=== PATIENT | male | born 1960 | race Caucasian/White ===

== ENCOUNTER 2025-01-17 09:26 | Outpatient (REF) | payer MEDICARE, MEDICAID, SELFPAY ==
--- NOTE | ~2025-01-17 | XR_ITS ---
CLINICAL HISTORY: M54.9 - Dorsalgia, unspecified 5 views lumbar spine Comparison: None Findings: Trace retrolisthesis of L5 on S1. Remaining alignment is normal. No acute fractures or dislocation. There are changes of DISH. There is mild loss of intervertebral disc height at L5-S1. There is mild facet osteoarthritis at L4-L5 and L5-S1. IMPRESSION: No acute findings. This document has been electronically signed by: Lulú Morgan MD on 01/17/2025 14:14:11
--- OUTSIDE RECORDS SUMMARY | 2025-01-17 11:40 | XMS_ITS | Encounter Summary ---
Author Organization [employer] Address 75 [facility] 7t [place] [address] Care Team Providers Care Engagement Executive Name Role Phone Hilda Lb MONTGOMERY Primary Care Provider + [phone] Encounter Details Date Type Department Care Team (Late st Contact Info) Description 11/15/2024 Orders Only [facility] MEDICAL [address] [place] [address] ProviderAna MD Social History Tobacco Use Types [...] 04/30/2025 9:00 AM EDT Office Visit [facility] MEDICAL [address] [place] [address] Lb Stevens NP [address] [place] [address] documented as of this encounter Procedures Procedure Name Priority Date/Time Associated Diagnosis Comments HM COLONOSCOPY Routine 11/14/2024 10:38 AM EST documented in this encounter Results * Hm Colonoscopy (11/14/2024 10:38 AM EST) us Historical Provider HEALTH MAINTENANCE Final Result documented in this encounter Visit Diagnoses Not on filedocumented in this encounter Care Teams Engagement Executive Relationship Specialty Start Date End Date Lb Stveens NP [address] [place] [address] PCP - General Internal Medicine 10/28/22 documented as of this encounter
--- OUTSIDE RECORDS SUMMARY | 2025-01-17 11:40 | XMS_ITS | Encounter Summary ---
Author Organization [employer] Address 75 [facility] 7t [place] [address] Care Team Providers Care Tire Buster Name Role Phone Lb Stevens NP Primary Care Provider + [phone] Reason for Visit * Reason Onset Date Comments Med Refill 12/24/2024 Encounter Details Date Type Department Care Team (Late st Contact Info) Description 12/24/[address] [facility] MEDICAL [address] [place] [address] Lb Stevens NP [address] [place], [place] [phone] Primary osteoarthritis involving multiple joints (Primary Dx) [...] Description 04/30/2025 9:00 AM EDT Office Visit [place] [facility] [address] [place] [address] Lb Stevens NP [address] [place] [address] documented as of this encounter Visit Diagnoses Diagnosis Primary osteoarthritis involving multiple joints- Primary documented in this encounter Care Teams Tire Buster Relationship Specialty Start Date End Date Lb Stevens NP [address] [place] [address] PCP - General Internal Medicine 10/28/22 documented as of this encounter
--- OUTSIDE RECORDS SUMMARY | 2025-01-17 11:40 | XMS_ITS | Encounter Summary ---
Author Organization [employer] Address [address] [place] [address] Care Team Providers Care Quality Assurance Qa Lab Technician Name Role Phone Lb Stevens NP Primary Care Provider [phone] Encounter Details Date Type Department Care Team (Late st Contact Info) Description 01/01/2025 9:00 AM EST Office Visit Armen [facility] [address] [place] [address] Lb Stevens NP [address] [place] [address] Type 2 diabetes mellitus without complication, without long-term current use of insulin ([facility]) (Primary Dx); Essential hypertension; Hyperlipidemia, [...] 9:00 AM EST 01/01/25 Thaddeus Pacheco [id number] HPI: Thaddeus Pacheco is a 64 y.o. male Hx of numbness in left arm, LEFT thumb and 2nd/3rd finger; mild numbness in right arm. Xray of c-spine with deg changes; MRI with moderate deg changes Taking oxycodone for pain, Bupronorphine patch not approved by insurance Also rxed meloxicam, apap, and cyclobenzaprine. Saw Dr Mccarty at [facility] in past. Referred to [facility] but not yet seen Chronic [...] did not get it from pharmacy. RHM [id number] with adenomatous polyps, plan to repeat 2028 Due for Prevnar, flu, covid, declines. Patient Active Problem List Diagnosis Date Noted Chronic gout of multiple sites 10/14/2022 Essential hypertension 10/14/2022 Hyperlipidemia 10/14/2022 Type 2 diabetes mellitus without complication, without long-term current use of insulin ([facility]) 10/14/2022 Peripheral polyneuropathy 10/14/2022 Esophageal polyp 10/14/2022 [...] complication, without long-term current use of insulin ([facility]) (Primary) Improving. No change tx. Diet reviewed Labs as below - POCT glycosylated hemoglobin (Hgb A1c) - Albumin/Creatinine Ration, Timed Urine; Future - Albumin/Creatinine Ration, Timed Urine 2. Essential hypertension Controlled, check labs - Basic Metabolic Panel 635226; Future - Basic Metabolic Panel 448988 3. Hyperlipidemia, unspecified hyperlipidemia type On statin, check labs - Lipid Panel, Standard 61465; Future - Lipid Panel, Standard 52319 4. Elevated PSA Prostate with enlargement. Continue meds. Check PSA. Consider addition of finasteride next visit, but will send to urology if PSA remains elevated. - PSA,Total [[id number]]; Future - PSA,Total [[id number]] 5. Nocturia As above 6. Cervicalgia Will f/u with [facility] 7. Primary osteoarthritis involving multiple joints Continue on oxycodone, refill cyclobenzaprine prn. - cyclobenzaprine (Flexeril) 10 MG tablet; Take 1 tablet (10 mg) by mouth if needed at bedtime for muscle spasms. Dispense: 90 tablet; Refill: 0 8. Vitamin D deficiency Check labs - Vitamin D 1,25 dihydroxy 119590; Future - Vitamin D 1,25 dihydroxy 230505 9. Idiopathic chronic gout of multiple sites [...] pain). Lb Stevens, MSN, MSP, ANP [facility] [address], [place] [address] documented in this encounter Plan of Treatment Upcoming Encounters Date Type Department Care Team (Late st Contact Info) Description 04/30/2025 9:00 AM EDT Office Visit Armen [facility] [address] [place] [address] Lb Stevens NP [address] [facility] [place] [address] Scheduled Orders Name Type Priority Associated Diagnoses Orde r Schedule PSA,Total [[id number]] Lab Routine Elevated PSA Expected: 01/01/2025, Expires: 01/01/2026 Lipid Panel, Standard 12654 Lab Routine Hyperlipidemia, unspecified hyperlipidemia type Expected: 01/01/2025, Expires: 01/01/2026 Vitamin D 1,25 dihydroxy 952930 Lab Routine Vitamin D deficiency Expected: 01/01/2025, Expires: 01/01/2026 Uric acid Lab Routine Idiopathic chronic gout 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 Expected: 01/01/2025, Expires: 01/01/2026 Basic Metabolic Panel 511152 Lab Routine Essential hypertension Expected: 01/01/2025, Expires: 01/01/2026 Albumin/Creatinine Ration, Timed Urine Lab Routine Type 2 diabetes mellitus without complication, without long-term current use of insulin ([facility]) Expected: 01/01/2025 (Approximate), Expires: 01/01/2026 documented as of this encounter Procedures Procedure Name Priority Date/Time Associated Diagnosis Comments POCT GLYCOSYLATED HEMOGLOBIN (HGB A1C) Routine 01/01/2025 9:13 AM EST Type 2 diabetes mellitus without complication, without long-term current use of insulin ([facility]) documented in this encounter Results * (ABNORMAL) [...] complication, without long-term current use of insulin ([facility])- Primary Essential hypertension Unspecified essential hypertension Hyperlipidemia, unspecified hyperlipidemia type Elevated PSA Elevated prostate specific antigen (PSA) Nocturia Cervicalgia Primary osteoarthritis involving multiple joints Vitamin D deficiency Idiopathic chronic gout 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 Adenomatous polyp of colon, unspecified part of colon Healthcare maintenance documented in this encounter Care Teams Quality Assurance Qa Lab Technician Relationship Specialty Start Date End Date Lb Stevens NP [address] [place] [address] PCP - General Internal Medicine 10/28/22 documented as of this encounter
--- OUTSIDE RECORDS SUMMARY | 2025-01-17 11:40 | XMS_ITS | Encounter Summary ---
Author Organization [employer] Address [address] [facility] [address] [place] [address] Care Team Providers Care Soil Scientist Name Role Phone Lb Stevens NP Primary Care Provider [phone] Reason for Visit * Reason Onset Date Comments Med Refill 01/17/2025 Encounter Details Date Type Department Care Team (Late st Contact Info) Description 01/17/2025 Refill [facility] [address] [place] [address] Lb Stevens NP [address] [place], [place] [id number] Primary osteoarthritis involving multiple joints Social History [...] 04/30/2025 9:00 AM EDT Office Visit Armen [facility] [address] [place] [address] Lb Stevens NP [address] [place] [address] documented as of this encounter Visit Diagnoses Diagnosis Primary osteoarthritis involving multiple joints documented in this encounter Care Teams Soil Scientist Relationship Specialty Start Date End Date Lb Stevens NP [address] [place] [address] PCP - General Internal Medicine 10/28/22 documented as of this encounter
--- OUTSIDE RECORDS SUMMARY | 2025-01-17 11:40 | XMS_ITS | Clinical Summary ---
Author Organization [employer] Address [address] [facility] [address] [place] [address] Care Team Providers Care Knife Sharpener Name Role Phone Lb Stevens NP Primary [...] complication, without long-term current use of insulin ([facility]) 1 each by Other route if needed [...] tabletIndications :Type 2 diabetes mellitus without complications ([facility]) TAKE 1 TABLET BY MOUTH TWICE A [...] Type Department Care Team Description 01/17/2025 Refill [facility] [address] [place] [address] Lb Stevens NP Primary osteoarthritis involving multiple joints 01/01/2025 9:00 AM EST Office Visit [address] [address] Lb Stevens NP Type 2 diabetes mellitus without complication, without long-term current use of insulin ([facility]) (Primary Dx); Essential hypertension; Hyperlipidemia, unspecified hyperlipidemia type; Elevated PSA; Nocturia; Cervicalgia; Primary osteoarthritis involving multiple joints; Vitamin D deficiency; Idiopathic chronic gout 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; Adenomatous polyp of colon, unspecified part of colon; Healthcare maintenance 12/24/2024 Refill [facility] [address] [place] [address] Lb Stevens NP Primary osteoarthritis involving multiple joints (Primary Dx) 12/05/[address] [address] Lb Stevens NP Abnl cervical MRI, referral to pain mgmt 12/02/[address] [address] Lb Stevens NP Seborrheic dermatitis 11/29/[address] [address] Lb Stevens NP Nocturia 11/28/[address] [address] Lb Stevens NP Vitamin D deficiency 11/15/[address] [facility] [address] [place] [address] ProviderAna MD 10/24/[address] [facility] [address] [place] [address] Lb Stevens NP Primary osteoarthritis involving multiple joints; Chronic pain of left knee 10/19/2024 Refill [facility] [address] [place] [address] Lb Stevens NP Type 2 diabetes mellitus without complications ([facility]) from Last 3 Months Immunizations Name Administration [...] Cataracts Sister Relation Name Status Comments Father [place] Mother gangrene Sister Social History Tobacco Use [...] 04/30/2025 9:00 AM EDT Office Visit Armen [facility] [address] [place] [address] Lb Stevens NP [address] [place] [address] Health Maintenance Due Date Last Done Comments [...] complication, without long-term current use of insulin ([facility]) MR CERVICAL SPINE WO CONTRAST Routine 11/24/2024 [...] Venous blood specimen / Unknown Lb Stevens PHARMACY SALESPERSON LAB BLOOD ORDERABLES Final R esult EXTERNAL LAB * Microalbumin, Random Urine w/Creatinine (06/24/2023 7:07 AM EDT) Micro-Albumin 14.0 (<20) MG/L [facility] Comment: The urine microalbumin test is designed to monitor renal function. When screening for Bence Bowens proteinuria, urine electrophoresis is recommended. Malb/Creat Ratio 15.6 (0-20) MG/GM [facility] Urine Creat For Micro Albumin 89.0 MG/DL [facility] Comment: Testing performed or reported by [facility], a Service of [facility], [address] [place] [address] Cruz French MD, [employer] [facility]# [id number] 06/24/2023 7:07 AM EDT 06/24/2023 7:08 AM EDT Lb Stevens PHARMACY SALESPERSON LAB URINE ORDERABLES Final R esult Performing Organization Address [facility] Co de Phone Number [facility] [place] [address] from Last 3 Months or Most Recently Relevant to Health Maintenance Insurance [employer] MCR ADV HMO [facility] Care Teams Knife Sharpener Relationship Specialty Start Date End Date Lb Stevens NP [address] [place] [address] PCP - General Internal Medicine 10/28/22
--- OUTSIDE RECORDS SUMMARY | 2025-01-17 11:41 | XMS_ITS | Data Portability ---
Author Organization [facility], Endoscopy, [facility] Address [address] [place] [address] Assessment No assessment recorded. Plan of Treatment Reminders Order Date Submit Date Provider Last Modified By Organization Details Last Modified Time Details Appointments None record ed. Lab None record ed. Referral None record ed. Procedures None record ed. Surgeries None record ed. Imaging None record ed. Medication Orders None record ed. Patient TargetsNo targets recorded. Patient InstructionsNo instructions recorded. Reason for Referral None Reported. Results Created Date Observation Date Name Description Value Unit Range Abnormal Flag Note LastModifiedBy Organization Detail LastModifiedTime Result Notes None recorded. Procedures Surgical History Date Name Laterality Status Provider Name and Address Organization Details Recorded Time 4 Michael - Colonoscopy completed Vasquez Rodriguez MD [address] [place] [address], [id number] 11/14/2024 09:52:51 Imaging Results None recorded. Procedure Notes None recorded. Medical Equipment None Reported. Allergies Allergen ID Allergen Name Allergen Category Reaction Reaction Severity Criticality Documentation Date Start Date Code Code System Note Provider Name and Address Organization Details Recorded Time 642537 Product containin g penicilli n (product) medicatio n swelling Not available Not available 11/12/2024 03112 8001 SNOMED ASIA Costa, [facility] 4 15:11:31 100294 prednison e medicatio n chest pain Not available Not available 11/12/2024 8640 RxNorm ASIA Reveles, [facility] 4 16:25:44 950754 honey bee venom medicatio n anaphylax is Not available Not available 11/12/2024 38232 7 RxNorm ASIA Reveles, [facility] 4 16:26:37 743377 penicilla mine medicatio n swelling Not available Not available 11/13/2024 7975 RxNorm Lulú Moeller RN [facility] 15:11:36 Medications Name Sig Start Date Stop Date Status Note LastModified by Organization Details LastModified Time atorvastatin active Not Available Not Available Not Available meloxicam active Not Available Not Aminata ilable Not Available tamsulosin active Not Available Not Av ailable Not Available omeprazole active Not Available Not Av ailable Not Available amlodipine active Not Available Not Av ailable Not Available cyclobenzaprine active PRN Not Available N ot Available Not Available allopurinol active Not Available Not A vailable Not Available Vitamin D3 active Not Available Not Av ailable Not Available metformin active Not Available Not Aminata ilable Not Available Vitals None Recorded Social History None recorded. Functional Status None recorded. Mental Status None recorded. Family History Nothing Reported. Medical History No medical history recorded. Past Encounters Encounter ID Performer Location Encounter Start Date Encounter Closed Date Diagnosis/Indication Diagnosis SNOMED-CT Code Diagnosis ICD10 Code Diagnosis Note [id number] [facility], OFFICE [address] [place] [address] 03/31/2004 10:18:30 03/31/2004 14:37:57 [id number] LAB - [address] [address] 03/31/2004 11:19:45 03/31/2004 11:20:36 [id number] [facility], OFFICE [address] [place] [address] 6 04/30/2004 12:10:45 05/01/2004 08:39:52 [id number] [facility], OFFICE [address] [place] [address] 6 05/12/2004 09:58:16 05/12/2004 11:59:15 [id number] [facility], [address] [address] 05/26/2004 09:43:20 05/26/2004 12:18:46 [id number] [facility], OFFICE [address] [place] [address] 6 06/02/2004 11:10:06 06/02/2004 14:32:25 [id number] [facility], OFFICE [address] [place] [address] 6 12/17/2004 14:11:44 12/17/2004 16:58:39 [id number] Radiology , [facility] [address] [place] [address] 6 12/17/2004 14:45:09 12/18/2004 09:03:30 [id number] Radiology , [facility] [address] [place] [address] 6 12/17/2004 00:00:00 12/18/2008 02:02:29 [id number] FP, [facility], [address]ICE [address] [place] [address] 12/23/2004 16:09:24 12/24/2004 08:38:56 [id number] FP, [facility], [address] [place] [address] 01/08/2005 14:52:21 01/08/2005 15:55:33 [id number] Radiology , [facility] [address] [place] [address] 6 03/15/2005 14:45:40 03/16/2005 09:17:27 [id number] Radiology , [facility] [address] [place] [address] 6 03/15/2005 00:00:00 12/18/2008 02:02:29 [id number] FP, [facility], OFF[address] [place] [address] 6 03/15/2005 14:26:25 03/15/2005 16:19:02 [id number] FP, [facility], [address] [place] [address] 6 03/25/2005 11:02:59 03/25/2005 15:08:17 [id number] Radiology , [facility] [address] [place] [address] 6 03/25/2005 11:21:44 03/26/2005 08:38:01 [id number] Radiology , [facility] [address] [place] [address] 6 03/25/2005 00:00:00 12/18/2008 02:02:29 [id number] FP, [facility], OFF[address] [place] [address] 6 06/01/2005 16:11:52 06/02/2005 08:44:19 [id number] FP, [facility], [address] [place] [address] 6 04/28/2006 09:32:50 04/28/2006 11:20:56 [id number] Radiology , [facility] [place] [address] 6 04/28/2006 10:45:25 04/29/2006 09:36:23 [id number] LAB - [facility] GREGORY Craven62[address] 6 04/29/2006 07:55:27 04/29/2006 07:55:45 [id number] Physical Therapy, [facility] GREGORY Craven62-[address] 6 05/09/2006 11:27:47 12/18/2008 02:02:29 [id number] Physical Therapy, [facility] Debra [facility] GREGORY Mccollum62-[address] 6 05/12/2006 13:30:35 12/18/2008 02:02:29 [id number] Physical [facility], [facility] Debra [facility] GREGORY Mccollum62-146 6 05/17/2006 08:18:10 12/18/2008 02:02:29 [id number] Physical Therapy, [facility] Debra [facility] GREGORY Mccollum62-[address] 6 05/19/2006 09:42:08 05/20/2006 09:04:42 [id number] Physical [facility], [address] G[place] Boothe62[address] 6 05/23/2006 10:58:43 12/18/2008 02:02:29 [id number] Physical [facility], [address] GREGORY Boothe62[address] 6 05/25/2006 07:27:58 12/18/2008 02:02:29 [id number] , [facility], [place] [address] [address] [place] [address] 6 05/26/2006 10:51:49 12/18/2008 02:02:29 [id number] Physical [facility], [address] [place] [address] 6 05/27/2006 11:01:08 12/18/2008 02:02:29 [id number] Physical [facility], [address] [place] [address] 6 06/03/2006 11:50:12 12/18/2008 02:02:29 [id number] Radiology , [facility] Debra [facility] [place] [address] 6 04/28/2006 00:00:00 12/18/2008 02:02:29 [id number] Physical [facility], [facility] Debra [facility] [place] [address] 6 06/07/2006 12:58:31 12/18/2008 02:02:29 [id number] Physical Therapy, [facility] [place] [address] 6 06/13/2006 12:00:36 12/18/2008 02:02:29 [id number] Physical Therapy, [facility] [place] [facility] [place] [address] 6 06/17/2006 12:56:28 12/18/2008 02:02:29 [id number] , [facility], OFFICE [address] [facility] [address] 6 07/28/2006 09:21:20 07/28/2006 11:11:41 [id number] Optical, [facility] Debra [facility] [place] [address] 6 10/11/2006 10:22:16 10/11/2006 16:53:56 [id number] Eye Care, [facility] [place] [facility] [place] [address] 10/11/2006 08:59:55 12/18/2008 02:02:29 [id number] [facility], OFFICE [address] [place] [address] 01/06/2007 09:16:54 01/06/2007 13:24:46 [id number] [facility], OFFICE [address] [place] [address] 6 01/09/2007 09:32:35 01/09/2007 13:14:56 [id number] [facility] - [facility] 70 [place] [address] 6 04/19/2007 08:10:17 04/19/2007 08:10:21 [id number] [facility], OFFICE [address] [place] [address] 6 05/26/2007 08:27:30 05/26/2007 10:20:43 [id number] [facility], OFFICE [address] [place] [address] 6 05/29/2007 11:40:45 05/29/2007 15:23:55 [id number] [facility], OFFICE [address] [place] [address] 6 06/01/2007 15:12:26 06/02/2007 08:38:31 [id number] [facility], OFFICE [address] [place] [address] 08/01/2007 10:19:48 08/07/2007 09:46:02 [id number] [facility], OFFICE [address] [facility] [place] [address] 6 01/25/2008 15:58:37 12/18/2008 02:02:29 [id number] [facility], OFFICE [address] [facility] [place] [address] 6 01/29/2008 09:51:09 12/18/2008 02:02:29 [id number] LAB - [facility] 70 [facility] GREGORY Mccollum62-[address] 6 01/30/2008 08:33:13 01/30/2008 08:33:17 [id number] [facility], OFFICE [address] [facility] [place] [address] 6 02/06/2008 09:55:47 12/18/2008 02:02:29 [id number] Radiology , [facility] 70 [facility] [place] [address] 6 02/14/2008 10:18:11 02/15/2008 09:21:32 [id number] [facility], OFFICE [address] [facility] [place] [address] 6 02/14/2008 09:39:56 12/18/2008 02:02:29 [id number] Physical Therapy, [facility] 70 [facility] [place] [address] 6 02/19/2008 11:15:58 02/19/2008 17:04:46 [id number] [facility] - [address] [place] [address] 6 04/30/2008 07:47:56 04/30/2008 07:48:05 [id number] [facility], OFFICE [address] [facility] [place] [address] 6 06/17/2008 11:20:30 12/18/2008 02:02:29 [id number] [facility] - [facility] 70 [facility] [place] [address] 6 09/04/2008 07:10:21 09/04/2008 07:10:28 [id number] [facility], OFFICE [address] [facility] [place] [address] 6 09/20/2008 09:24:38 12/18/2008 02:02:29 [id number] Optical, [facility] 70 [facility] [place] [address] 6 10/14/2008 09:58:54 10/14/2008 16:40:17 [id number] Eye Care, [facility] 70 [facility] [place] [address] 6 10/14/2008 08:56:42 10/14/2008 12:00:56 [id number] Eye [facility], [facility] [address] [place] [address] 6 10/14/2008 00:00:00 12/18/2008 02:02:29 [id number] , [facility], OFFICE [address] [place] [address] 02/14/2009 09:13:26 02/20/2009 12:37:40 [id number] , [facility], OFFICE [address] [place] [address] 6 02/17/2009 11:26:42 02/19/2009 11:10:33 [id number] , [facility], OFFICE [address] [place] [address] 6 02/21/2009 11:46:59 02/24/2009 15:25:29 [id number] , [facility], OFF[address] [place] [address] 6 02/25/2009 09:49:33 02/27/2009 11:03:33 [id number] [facility], OFFICE [address] [place] [address] 6 02/28/2009 10:25:08 03/05/2009 09:33:07 [id number] , [facility], OFFICE [address] [facility] [place] [address] 6 06/26/2009 10:17:00 07/02/2009 14:43:45 [id number] , [facility], OFFICE [address] [facility] [place] [address] 6 06/27/2009 09:34:03 07/03/2009 13:25:41 [id number] [facility], OFFICE [address] [place] [address] 6 07/14/2009 10:20:34 07/16/2009 15:01:27 [id number] Tara small [place] , [facility], OFFICE [address] [place] [address] 6 07/29/2009 16:40:39 08/01/2009 11:47:00 [id number] LAB - [facility] [address] [place] [address] 6 01/15/2009 08:51:18 01/15/2009 08:51:22 [id number] LAB - [facility] [address] [place] [address] 6 02/28/2009 11:16:45 02/28/2009 11:16:53 [id number] LAB - C [address] [facility] [place] [facility] [address] 6 06/26/2009 14:01:41 06/26/2009 14:01:47 [id number] [facility], OFFICE [address] [facility] [place] [address] 6 07/29/2009 00:00:00 09/25/2009 02:00:52 [id number] LAB - [facility] 70 [facility] [place] [address] 6 08/05/2009 07:42:17 08/05/2009 07:42:31 [id number] [facility], OFFICE [address] [facility] [place] [address] 6 09/27/2009 09:27:38 09/30/2009 15:31:58 [id number] [facility], OFFICE [address] [facility] [address] 6 10/03/2009 08:14:08 10/06/2009 14:02:12 [id number] Radiology , [facility] 70 [facility] [place] [address] 6 10/03/2009 08:37:09 10/06/2009 14:30:16 [id number] MD SASHA Denny [facility], OFFICE [address] [facility] [place] [address] 6 01/23/2010 08:51:23 01/26/2010 11:56:16 [id number] [facility], OFFICE [address] [facility] [place] [address] 6 04/06/2010 09:00:40 04/08/2010 09:13:59 [id number] SASHA [facility], OFFICE [address] [facility] [place] [address] 6 08/13/2010 11:01:52 08/13/2010 14:44:20 [id number] [facility], OFFICE [address] [facility] [address] 6 09/07/2010 08:18:05 09/09/2010 09:17:40 [id number] [facility], OFFICE [address] [facility] [place] [address] 6 10/09/2010 10:28:02 10/09/2010 14:41:59 [id number] SASHA [facility], OFFICE [address] [facility] [place] [address] 6 12/01/2010 09:00:42 12/01/2010 13:35:24 [id number] FP, [facility], OFFICE [address] [facility] [place] [place] [address] 6 01/21/2011 11:23:21 01/21/2011 14:13:57 [id number] FP, [facility], OFF[address] [place] [address] 6 03/19/2011 10:09:10 03/23/2011 14:20:09 [id number] FP, [facility], OFF[address] [place] [address] 6 06/18/2011 09:43:09 06/18/2011 12:13:22 [id number] Nutrition -[facility] [address] [place] [address] 6 07/20/2011 09:16:40 07/20/2011 10:14:35 [id number] FP, [facility], OFF[address] [place] [address] 6 09/15/2011 09:50:18 09/15/2011 10:26:20 [id number] FP, [facility], OFF[address] [place] [address] 6 10/13/2011 09:25:01 10/15/2011 07:39:30 [id number] FP, [facility], OFF[address] [place] [address] 6 01/12/2012 09:33:03 01/17/2012 10:44:04 [id number] FP, [facility], OFF[address] [place] [address] 6 04/26/2012 10:27:44 04/26/2012 10:56:16 [id number] Tara small [place] FP, [facility], [address] [place] [address] 6 07/19/2012 11:04:42 07/19/2012 11:49:32 [id number] MD SASHA Denny, [facility], OFF[address] [place] [address] 6 12/22/2012 09:28:01 12/22/2012 10:05:38 [id number] Rubi BAEZ, [facility], OFF[address] [place] [address] 6 01/19/2013 10:08:53 01/19/2013 12:40:24 [id number] MD SASHA Mcnamara, [facility], OFF[address] [place] [address] 6 02/27/2013 14:49:49 02/27/2013 15:28:21 [id number] Lissa Alpesh BAEZ, [facility], OFF[address] [place] [address] 6 03/13/2013 09:20:17 03/13/2013 12:58:07 [id number] Lissa Alpesh BAEZ, [facility], OFF[address] [place] [address] 6 03/23/2013 10:54:42 03/26/2013 13:07:09 [id number] Lissa BAEZ, [facility], OFF[address] [place] [address] 6 04/02/2013 11:11:12 04/02/2013 13:54:07 [id number] Madison Padilla, PT Physical Therapy, [address] [place] [facility] [place] [address] 6 04/04/2013 08:41:36 04/05/2013 07:58:38 [id number] Madison Padilla PT Physical Therapy, [address] [place] [facility] [place] [address] 6 04/09/2013 10:58:16 04/10/2013 09:14:59 [id number] Madison Padilla PT Physical Therapy, [address] [place] [facility] [place] [address] 6 04/12/2013 09:01:47 04/12/2013 10:48:41 [id number] Madison Padilla PT Physical Therapy, [address] [place] [address] 6 04/16/2013 08:59:33 04/16/2013 10:16:26 [id number] Madison Padilla PT Physical Therapy, [address] [place] [address] 6 04/18/2013 12:57:53 04/18/2013 14:24:31 [id number] MD SASHA Denny, [facility], OFFICE [address] [place] [address] 6 06/26/2013 10:15:48 06/26/2013 10:59:01 [id number] Tushar Byrd MD , [facility], OFF[address] [place] [address] 6 08/24/2013 10:17:23 08/28/2013 12:41:21 [id number] , [facility], OFF[address] [place] [address] 6 08/27/2013 11:44:42 08/30/2013 12:04:39 [id number] Deanna Bustamante , [facility], OFF[address] [place] [address] 6 10/29/2013 09:17:21 10/29/2013 10:11:07 [id number] Heather Hsu , [facility], OFF[address] [place] [address] 6 02/25/2014 14:50:17 02/25/2014 16:03:00 [id number] [facility] [address] [place] [address] 6 04/02/2014 07:45:48 04/05/2014 15:28:32 [id number] Kaity Marsh [facility], OFFICE [address] [place] [address] 6 05/21/2014 10:50:12 05/22/2014 09:19:04 [id number] Tara small MA , [facility], OFF[address] [place] [address] 6 05/27/2014 10:04:08 05/27/2014 10:31:28 [id number] GREGORY Dias, [facility], OFF[address] [place] [address] 6 08/26/2014 09:22:03 08/26/2014 15:15:01 [id number] Lissa Dewey [facility], OFFICE [address] [place] [address] 6 12/02/2014 08:12:17 12/02/2014 08:52:43 [id number] Diana Rodriguez [facility], OFF[address] [place] [address] 6 03/03/2015 08:14:53 03/03/2015 08:45:24 [id number] , [facility], OFFICE [address] [place] [address] 6 06/16/2015 08:09:54 06/16/2015 09:08:39 [id number] Prema Holliday , [facility], OFF[address] [place] [address] 6 07/21/2015 14:45:54 07/21/2015 16:10:38 [id number] Tushar Byrd MD , [facility], OFF[address] [place] [address] 6 09/16/2015 08:13:03 09/16/2015 08:59:38 [id number] Tushar Byrd MD , [facility], OFF[address] [place] [address] 6 12/15/2015 10:47:38 12/15/2015 11:23:33 [id number] Jeri Jc, OD Eye Care, [facility] [address] [place] [address] 6 01/08/2016 11:00:44 01/08/2016 12:22:35 [id number] Marialuisa Hilton , [facility], OFFICE [address] [place] [address] 6 03/08/2016 09:20:22 03/10/2016 11:15:19 [id number] Yenni Andre Podiatry, [address] [address] 6 05/17/2016 09:51:44 05/17/2016 10:55:50 [id number] Saira Garibay DPM Podiatry, [address] [address] 6 05/24/2016 08:51:04 05/24/2016 09:10:38 [id number] Tushar Byrd MD , [facility], OFFICE [address] [place] [address] 6 07/14/2016 08:08:43 07/14/2016 08:48:10 [id number] Saira Garibay DPM Podiatry, [address] [address] 6 07/19/2016 08:39:33 07/19/2016 09:03:02 [id number] Dav Bai, OD Eye Care, [address] [address] 6 08/27/2016 09:18:25 08/27/2016 10:15:33 [id number] Saira Garibay DPM Podiatry, [address] [address] 6 09/20/2016 08:48:55 09/20/2016 09:37:54 [id number] Tushar Byrd MD , [facility], OFFICE [address] [place] [address] 6 09/22/2016 09:00:30 09/22/2016 10:11:01 [id number] Saira Garibay, DPYahaira Podiatry, [facility] [address] [place] [address] 6 12/14/2016 08:43:18 12/14/2016 09:30:38 [id number] Tushar Byrd MD , [facility], OFFICE [address] [place] [address] 6 12/21/2016 08:28:39 12/21/2016 08:51:57 [id number] Randy Pereira MD PhD Rheumatol [address] [address] 6 12/21/2016 12:25:49 12/21/2016 13:23:22 [id number] Randy Pereira MD PhD Rheumatol [address] [address] 6 01/25/2017 13:31:52 01/25/2017 16:13:41 [id number] Madison Padilla, PT Physical Therapy, [address] [address] 6 01/27/2017 09:37:05 01/28/2017 13:10:51 [id number] Madison Padilla, PT Physical Therapy, [address] [address] 6 02/01/2017 10:28:42 02/01/2017 11:31:46 [id number] GUMARO Lynn , [facility], OFFICE [address] [place] [address] 6 03/14/2017 16:48:43 03/14/2017 17:10:58 [id number] Merly Wright , [facility], OFFICE [address] [place] [address] 6 03/19/2017 14:39:19 03/19/2017 15:21:04 [id number] Tushar Byrd MD , [facility], OFFICE [address] [place] [address] 6 03/24/2017 09:56:49 03/24/2017 10:29:24 [id number] Tushar Byrd MD , [facility], OFFICE [address] [place] [address] 6 07/04/2017 09:59:31 07/04/2017 10:36:36 [id number] Jeanne Jeffery NP , [facility], OFFICE [address] [place] [address] 6 08/12/2017 09:09:26 08/12/2017 13:58:07 [id number] Jeri Jc, OD Eye Care, [facility] [address] [place] [address] 6 08/23/2017 08:45:51 08/23/2017 09:53:07 [id number] Jeri Jc, OD Eye Care, [facility] [address] [place] [address] 6 09/20/2017 08:57:29 09/20/2017 10:15:59 [id number] Tushar Byrd MD , [facility], OFFICE [address] [place] [address] 6 10/03/2017 09:22:03 10/03/2017 09:50:56 [id number] Coty Odom, wildlife protector , [address] [address] 11/14/2024 08:00:57 11/14/2024 10:41:51 Health Concerns Section Related Observation LastModified by Organization Detai ls LastModified Time None Recorded Concern Status LastModified by Organization Details LastModified Time None Recorded Advance Directives Directive None Recorded Payers Encounter Date Sequence Insurance Name Policy Number Policy Burton Covered Member ID Burton Member ID Guarantor Name 11/14/2024 2 [place] Thaddeus Pacheco [id number] Thaddeus Pacheco 11/14/2024 1 [place]MEDICARE [place]ACEMENT HMO) [id number] Thaddeus Pacheco [id number] Thaddeus Pacheco
== END 2025-01-17 09:27 | disposition home or self-care (01) ==
LOC: HO.XRAY 09:26
PROVIDERS: PCP Nurse Practitioner Community Health; Referring Provider Nurse Practitioner Community Health; Visit Provider Registered Nurse Emergency
DX: M54.9 Dorsalgia, unspecified (principal); M79.7 Fibromyalgia; M47.816 Spondylosis without myelopathy or radiculopathy, lumbar region
CPT/HCPCS: 72110; 99202

== ENCOUNTER 2025-01-17 09:26 | Outpatient (AMB) | payer MEDICARE, MEDICAID, SELFPAY ==
--- NOTE | 2025-01-17 09:27 | MHC.OFFVIS ---
Vital Signs 01/17/25 09:28 Height 5 ft 7 in Weight 206 lb 8 oz BMI 32.3 BP 167/90 H Blood Pressure Location Rt brachial Position Sitting Pulse 91 Pulse Source Pulse Oximeter Pulse Oximetry (%) 96 Oxygen Delivery Method Room Air Intake Visit Reasons: Cervicalgia Accompanied by: Sister Allergies bee pollen [BEE STINGS] Allergy (Severe, Unverified 01/17/25 09:31) SWELLING Penicillins [PCN] Allergy (Severe, Unverified 01/17/25 09:31) SWELLING prednisone [PREDNISONE] Allergy (Intermediate, Unverified 01/17/25 09:31) CHEST PAIN bee stings Allergy (Mild, Verified 01/17/25 09:31) Anaphylaxis penicillamine [Cuprimine] Allergy (Unknown, Verified 01/17/25:31) Hives penicillin V Allergy (Unknown, Verified 01/17/25:31) Hives HPI Comments Details: Thaddeus is a very pleasant 64-year-old male who presented to the office today for evaluation and management of his chronic lower back pain. He is accompanied by his sister. Past medical history significant for osteoarthritis, hypertension, GERD, gout, Lyme arthritis, hyperlipidemia, type 2 diabetes, polyneuropathy, insomnia, obesity, fibromyalgia, chronic pain Patient complains of lower back pain for approximately 10 years. Attributed to degenerative disease and a lifetime of physical labor. Pain midline lower back without radiation down either lower extremity. Pain is worse with movement, bending, weather changes. He had recent imaging of his cervical spine, those results were reviewed as per below. Denies recent imaging of his lower back. Today he would like to focus on his lower back. Denies previous attempts at physical therapy, chiropractor, acupuncture, massage or injections. He has been taking nonsteroidal anti-inflammatory medications with minimal movement. Minimal relief with muscle relaxers. Some relief with topical icy hot patches but reports they are getting expensive and he is finding it difficult to afford them. He has been on chronic opioid therapy, oxycodone. Reports that this has been minimally helpful and makes his head ?fuzzy?. He does not like how they make him feel. According to referral note they are attempting to transition patient to buprenorphine patches which are pending insurance approval. Underwent steroid injection to the left hip October of 2024 with short-term relief. Denies red flag symptoms including new loss of bowel, bladder or saddle anesthesia. Pain today is rated as a 9/10, constant. In terms of muscle damage condition is described as aching, throbbing, punishing, sharp, stabbing, squeezing Pain is negatively impacting patient's sleep, ability to perform activities of daily living, ability to function normally, ability to care for himself Denies current use of anticoagulants Denies implantable devices, pacemaker or defibrillator Denies current use of nicotine, tobacco, alcohol or illicit substances [facility] Medical History (Updated 01/17/25 @ 12:20 by Maame Flood APRN, ARIANNE) GERD (gastroesophageal reflux disease) Polyneuropathy Osteoarthritis Obesity Insomnia Hypertension Hyperlipidemia Type 2 diabetes mellitus Lyme arthritis Gout Surgical History (Updated 01/17/25 @ 12:20 by Maame Flood APRN, ARIANNE) History of left knee replacement Social History (Updated 01/17/25 @ 09:35 by Hannah Jean CMA) Household Members: Children Household Members Other:: Son Housing: House Alcohol intake: current Alcohol intake frequency: holidays/special occasions only Patient Tobacco Use Status: Former Tobacco user Use of substances other than those prescribed or required for medical reasons: No service: No Current occupational status: retired Review of Systems Const All systems reviewed & are unremarkable except as noted in HPI and below Physical Exam Vital Signs: Last Vital Signs Pulse 91 01/17/25 09:28 BP 167/90 H 01/17/25 09:28 Pulse Ox 96 01/17/25 09:28 Oxygen Delivery Method Room Air 01/17/25 09:28 BMI result Body Mass Index 32.3 General: awake, alert, oriented. Answers questions appropriately. Fully engaged in examination. Skin: warm, dry, intact HEENT: Normocephalic. Hearing intact. Cardiac: External chest normal in appearance. Respiratory: No cough, audible wheezing or stridor. Abdomen: without gross distension. MS: No obvious swelling or deformities. Able to stand on bilateral tiptoes and bilateral heels.? Able to transition from sit to stand unassisted. Ambulates with bilaterally normal heel strike and toe off SLR negative bilaterally Nontender over bilateral PSIS Tenderness over midline lumbar vertebrae and lumbar paraspinal muscles Decreased lumbar range of motion. Pain with forward flexion and extension Facet loading positive bilaterally Neurological: Oriented to person, place, time and situation. Thought process intact. No gait abnormalities appreciated. Psychiatric: Appropriate mood and affect. Good judgment and insight. Results Reviewed Results Reviewed: Assessment & Plan Assessment & Plan (1) Back pain: Code(s): M54.9 - Dorsalgia, unspecified Category: Medical (2) Fibromyalgia: Code(s): M79.7 - Fibromyalgia Category: Medical (3) Lumbar spondylosis: Code(s): M47.816 - Spondylosis without myelopathy or radiculopathy, lumbar region Category: Medical Plan Thaddeus is a very pleasant 64-year-old male who presented to the office today for evaluation and management of his chronic lower back pain Patient is suffering with axial back pain. History, physical exam and provocative testing consistent with lumbar spondylosis and fibromyalgia Order placed for PT eval and treat X-ray ordered for evaluation New prescription for Savella 12.5 mg twice daily. Patient advised on cautions for use. Salonpas patches as directed. All questions and concerns were answered, patient agrees with the plan. Follow up in 1 month for medication management, potential dose adjustment of the Savella. Follow up after physical therapy to further discuss injections. Orders: Orders XR lumbar spine 4V min Today M54.9 - Dorsalgia, unspecified PT Evaluation and Treatment Today M54.9 - Dorsalgia, unspecified Medications: New milnacipran (Savella) 12.5 mg PO BID 60 tabs 0RF M79.7 - Fibromyalgia camphor-methyl salicyl-menthol 3.1 %-10 %-6 % (large) (Salonpas) may leave on for up to 12 hrs 1 patch topical DAILY PRN 6 ea 6RF pain M54.9 - Dorsalgia, unspecified Coding Level of Care Code New Pt Level 4 (31113) Complex EM visit Add On G2211 Diagnoses Back pain M54.9 Fibromyalgia M79.7 Lumbar spondylosis M47.816
[2025-01-17 09:28] VITALS: BP 167/90; PULSE 91; O2SAT 96; BMI 32.3
--- OUTSIDE RECORDS SUMMARY | 2025-01-17 10:12 | XMS_ITS | Clinical Summary ---
Author Organization [employer] Address [address] [facility] [address] [place] [address] Care Team Providers Care Cryptographic Technician Name Role Phone Lb Stevens NP Primary Care Provider Allergies Active Allergy Reactions Criticality Noted Date Comments Bee Venom Unknown 10/14/2022 Penicillamine 10/14/2022 Other reaction(s): Unknown Prednisone 10/14/2022 Other reaction(s): Unknown Medications Glucose Blood (GLUCOMETER ENCORE TEST ) one 07/14/20 22 Active EPINEPHrine (Epipen) 0.3 MG/0.3ML injection syringe as directed Injection once for 1 day 06/25/20 22 Active sennosides (Senokot) 8.6 MG tablet Take 1 tablet by mouth in the morning. 06/09/20 22 Active capsaicin (Zostrix) 0.025 % creamIndications: Chronic pain of left knee Apply topically 2 times daily. To affect joints. Wash hands well after applying. 50 g 1 03/01/20 23 Active atorvastatin (Lipitor) 40 MG tabletIndications :Hyperlipidemia, unspecified TAKE 1 TABLET BY MOUTH EVERY DAY 90 tablet 3 03/01/20 24 Active ketoconazole (NIZOral) 2 % creamIndications: Seborrheic dermatitis Apply topically 2 times daily. 30 g 1 04/30/20 24 Active clotrimazole (Lotrimin) 1 % creamIndications: Onychomycosis Apply topically 2 times daily. Use on toenails 30 g 2 04/30/20 24 Active meloxicam (Mobic) 15 MG tabletIndications :Primary osteoarthritis involving multiple joints Take 1 tablet (15 mg) by mouth Once per day. 30 tablet 11 07/02/20 24 2024 Active acetaminophen (Tylenol) 500 MG tabletIndications :Primary osteoarthritis involving multiple joints Take 2 tablets (1,000 mg) by mouth every 8 (eight) hours if needed for mild pain. 180 tablet 3 07/02/20 24 Active glucose blood (FREESTYLE LITE) test stripIndications: Type 2 diabetes mellitus without complication, without long-term current use of insulin ([facility]) 1 each by Other route if needed (test blood glucose levels as needed). 100 each 3 07/03/20 24 2024 Active amLODIPine (Norvasc) 2.5 MG tablet TAKE 1 TABLET BY MOUTH EVERY DAY 90 tablet 3 07/19/20 24 Active omeprazole (PriLOSEC) [address] capsuleIndication s:Gastro-esophage al reflux disease without esophagitis TAKE 1 CAPSULE BY MOUTH EVERY DAY 90 capsule 1 09/03/20 24 Active buprenorphine (Butrans) 5 MCG/HRIndications :Primary osteoarthritis involving multiple joints Place 1 patch on the skin 1 (one) time per week. 4 patch 09/03/20 24 Active allopurinol (Zyloprim) 100 MG tablet TAKE 2 TABLETS BY MOUTH EVERY DAY 180 tablet 1 09/20/20 24 Active metFORMIN (Glucophage) 500 MG tabletIndications :Type 2 diabetes mellitus without complications ([facility]) TAKE 1 TABLET BY MOUTH TWICE A DAY WITH FOOD 180 tablet 3 10/21/20 24 Active cholecalciferol (Vitamin D-3) 10 MCG (400 UNIT) tabletIndications :Vitamin D deficiency TAKE 2 TABLETS (20 MCG) BY MOUTH ONCE PER DAY. 180 tablet 1 11/29/19 25 Active tamsulosin (Flomax) 0.4 MG 24 hr capsuleIndication s:Nocturia TAKE 1 CAPSULE (0.4 MG) BY MOUTH ONCE PER DAY. 90 capsule 3 11/29/19 25 Active ketoconazole (NIZOral) 2 % shampooIndication s:Seborrheic dermatitis SHAMPOO THREE TIMES A WEEK, LEAVE ON FOR 5-10 MINUTES, THEN RINSE. 120 mL 1 12/03/19 25 Active cyclobenzaprine (Flexeril) 10 MG tabletIndications :Primary osteoarthritis involving multiple joints Take 1 tablet (10 mg) by mouth if needed at bedtime for muscle spasms. 90 tablet 01/01/20 25 Active oxyCODONE (Roxicodone) 5 MG immediate release tabletIndications :Primary osteoarthritis involving multiple joints Take 1 tablet (5 mg) by mouth every 6 (six) hours if needed for moderate pain for up to 28 days. 112 tablet 01/17/20 25 2024 Active cyclobenzaprine (Flexeril) 10 MG tabletIndications :Primary osteoarthritis involving multiple joints Take 1 tablet (10 mg) by mouth if needed at bedtime for muscle spasms. 90 tablet 09/25/20 24 2024 Discontinued(R eorder (will not trigger notification to Pharmacy)) oxyCODONE (Roxicodone) 5 MG immediate release tablet Take 5 mg by mouth every 6 (six) hours if needed. 11/26/20 24 2024 Discontinued(R eorder (will not trigger notification to Pharmacy)) oxyCODONE (Roxicodone) 5 MG immediate release tabletIndications :Primary osteoarthritis involving multiple joints Take 1 tablet (5 mg) by mouth every 6 (six) hours if needed for moderate pain for up to 28 days. 112 tablet 12/24/19 25 2024 Discontinued(R eorder (will not trigger notification to Pharmacy)) Active Problems Problem Noted Date Diagnosed Date History of left knee replacement 10/12/2023 Overview (10/12/2023): 10/05/23 Robina [facility]ICK[facility] Hx TKR Left 2021, pain since then. Noted moderate laxity with varus and valgus stress test. Rec hinged knee brace to wear at all times except sleep. FU 1 mo to reassess if subtle instability is causing pain. Arthritis of right hip 10/14/2022 Arthritis of left knee 10/14/2022 Chronic gout of multiple sites 10/14/2022 Esophageal polyp 10/14/2022 Essential hypertension 10/14/2022 Fibromyalgia 10/14/2022 Chronic low back pain 10/14/2022 Gastroesophageal reflux disease without esophagi tis 10/14/2022 Hyperlipidemia 10/14/2022 Presbyopia 10/14/2022 Old tear of medial meniscus of right knee 2021 Primary osteoarthritis of right knee 10/14/2022 Primary osteoarthritis involving multiple joints 10/14/2022 Primary insomnia 10/14/2022 Psoriasis 10/14/2022 Type 2 diabetes mellitus wit hout complication, without long-term current use of insulin 10/14/2022 Obesity (BMI 30.0-34.9) 10/14/2022 Peripheral polyneuropathy 10/14/2022 Resolved Problems Problem Noted Date Diagnosed Date Resolved Date Hyperkalemia 02/24/2023 03/02/2023 Dysgeusia 10/14/2022 03/02/2023 Vitamin D deficiency 10/14/2022 023 Encounters Date Type Department Care Team Description 01/17/2025 Refill [facility] [address] [place] [address] Lb Stevens NP Primary osteoarthritis involving multiple joints 01/01/2025 9:00 AM EST Office Visit [address] [address] Lb Stevens NP Type 2 diabetes mellitus without complication, without long-term current use of insulin ([facility]) (Primary Dx); Essential hypertension; Hyperlipidemia, unspecified hyperlipidemia type; Elevated PSA; Nocturia; Cervicalgia; Primary osteoarthritis involving multiple joints; Vitamin D deficiency; Idiopathic chronic gout 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; Adenomatous polyp of colon, unspecified part of colon; Healthcare maintenance 12/24/2024 Refill [facility] [address] [place] [address] Lb Stevens NP Primary osteoarthritis involving multiple joints (Primary Dx) 12/05/[address] [address] Lb Stevens NP Abnl cervical MRI, referral to pain mgmt 12/02/[address] [address] Lb Stevens NP Seborrheic dermatitis 11/29/[address] [address] Lb Stevens NP Nocturia 11/28/[address] [address] Lb Stevens NP Vitamin D deficiency 11/15/2024 Orders Only [facility] [address] [place] [address] ProviderAna MD 10/24/2024 Refill [facility] [address] [place] [address] Lb Stevens NP Primary osteoarthritis involving multiple joints; Chronic pain of left knee 10/19/2024 Refill [facility] [address] [place] [address] Lb Stevens NP Type 2 diabetes mellitus without complications ([facility]) from Last 3 Months Immunizations Name Administration Dates Next Due Influenza injectable quadriv alent preservative free 09/19/2019,08/12/2017,09/16/2015 Influenza, IIV3, injectable 09/27/2022,1 ,09/19/2019,10/18,08/12/2017,09/16/2015,08/26/2014 ,08/27/2013,07/19/2012,09/15/2011,08/28 Influenza, seasonal, injecta ble, preservative free 08/27/2013,07/19/2012 MMR 04/18/2019 Pneumococcal Polysaccharide PPSV23 03/19/2011 TD (adult), 2 Lf tetanus tox oid, preservative free, adsorbed 03/31/2005 Td (adult), unspecified 03/31/2006 Tdap 08/12/2017 Family History Medical History Relation Name Comments Cataracts Sister Relation Name Status Comments Father [place] Mother gangrene Sister Social History Tobacco Use Types Packs/Day Years Used Date Smoking Tobacco: Former Cigarettes Tobacco Cessation:Counseling Given: Not Answered Alcohol Use Standard Drinks/Week Comments Not Currently 0 (1 standard drink = 0.6 oz pur e alcohol) Housing Stability Answer Date Recorded What is your housing situation today? I have ralphnohemy rivera 09/03/[address] you li ve. Do you have problems with any of the following? None of the above 09/03/2024 Food Insecurity Answer Date Recorded Within the past 12 months, y ou worried that your food would run out before you got money to buy more: Never True 09/03/2024 Within the past 12 months,th e food you bought just didn't last and you didn't have enough money to get more: Never True 05/2024 Transportation Answer Date Recorded In the past 12 months, has l ack of transportation kept you from medical appts, meetings, work or from getting things needed for daily living? No 09/03/2024 Utilities Answer Date Recorded In the past 12 months, has t he electric, gas, oil or water company threatened to shut off services in your home? No 09/03/2024 Depression Answer Date Recorded Patient Health Questionnaire-2 Score 0 09/03/2024 Internet Access Answer Date Recorded Internet Access Q1 Yes 09/03/2024 Internet Access Q2 Not on file 09/03/2024 Sex and Gender Information Value Date Recorded Sex Assigned at Male 10/14/2022 12:05 PM EST Legal Sex Male 8:38 PM EDT Gender Identity Male 10/14/2022 12:05 PM EST Sexual Orientation Don't know 10/14/2022 12 :05 PM EST Sexual Orientation Straight 10/14/2022 12 :05 PM EST Last Filed Vital Signs Vital Sign Reading Time Taken Comments Blood Pressure 132/83 01/01/2025 9:04 AM EST Pulse 79 01/01/2025 9:04 AM EST Temperature 37.1 ??C (98.7 ??F) 01/01/2025 9:04 AM ES T Respiratory Rate 14 07/02/2024 11:04 AM EDT Oxygen Saturation 96% 01/01/2025 9:04 AM EST Inhaled Oxygen Concentration - - Weight 89.5 kg (197 lb 6.4 oz) 01/01/2025 9:04 A M EST Height 170.2 cm (5' 7 ) 01/01/2025 9:04 AM EST Body Mass Index 30.92 01/01/2025 9:04 AM EST Plan of Treatment Upcoming Encounters Date Type Department Care Team (Late st Contact Info) Description 04/30/2025 9:00 AM EDT Office Visit [facility] [address] [place] [address] Lb Stevens NP [address] [place] [address] Health Maintenance Due Date Last Done Comments CT Colonography 1959 FIT DNA/Cologuard 1959 FIT 1959 FOBT 1959 Sigmoidoscopy 1959 Diabetes: Foot Exam 1969 Alcohol/Substance Use Screening 1971 Hepatitis A Vaccines (1 of 2 - Risk 2-dose series) 1978 Zoster Vaccines (1 of 2) 2009 Pneumococcal Vaccine: 50+ Years (2 of 2 - PCV) 03/19/2012 03/19/2011 Hepatitis B Vaccines (1 of 3 - Risk 3-dose series) 2019 RSV Patients and Patients Aged 60 years or older (1 - Risk 60-74 years 1-dose series) 2019 Diabetes: Urine Protein Screening 06/24/2024 06/24/2023, 01/13/2023, 01/13/2022, Additional history exists COVID-19 Vaccine ( season) 2024 Influenza Vaccine (#1) 2024 , 09/17/2020, 09/19/2019, Additional history exists Diabetes: Hemoglobin A1C 07/01/2025 025, 09/06/2024, 09/06/2024, Additional history exists Depression Screening 09/03/2025 09/03/2024, 09/03/20 24 SDOH Screening 09/03/2025 09/03/2024 Lipid Panel 09/06/2025 09/06/2024, 05/29, 01/13/2023, Additional history exists Tobacco Screening 01/01/2026 01/01/2025 Eye Exam 09/04/2026 09/04/2024, 06/2024, 09/04/2024, Additional history exists DTaP/Tdap/Td Vaccines (2 - Td or Tdap) 08/12/2027 08/12/2017, 03/31/2006, 03/31/2005 Colonoscopy 11/14/2034 11/14/2024, 12/2010, 11/28/2010 Colorectal Cancer Screening 11/14/2034 HIB Vaccines Aged Out No longer eligi ble based on patient's age to complete this topic HPV Vaccines Aged Out No longer eligi ble based on patient's age to complete this topic IPV Vaccines Aged Out No longer eligi ble based on patient's age to complete this topic Meningococcal Vaccine Aged Out No michaelle flo eligible based on patient's age to complete this topic RSV under 20 months Aged Out No longe r eligible based on patient's age to complete this topic Rotavirus Vaccines Aged Out No longer eligible based on patient's age to complete this topic Procedures Procedure Name Priority Date/Time Associated Diagnosis Comments POCT GLYCOSYLATED HEMOGLOBIN (HGB A1C) Routine 01/01/2025 9:13 AM EST Type 2 diabetes mellitus without complication, without long-term current use of insulin ([facility]) MR CERVICAL SPINE WO CONTRAST Routine 11/24/2024 Cervicalgia HM COLONOSCOPY Routine 11/14/2024 10:38 AM EST LIPID PANEL, STANDARD Routine 09/06/2024 Hyperlipidemia, unspecified hyperlipidemia type MICROALBUMIN, RANDOM (W CREAT) Routine 06/24/2023 7:07 AM EDT from Last 3 Months or Most Recently Relevant to Health Maintenance Results * (ABNORMAL) POCT glycosylated hemoglobin (Hgb A1c) (01/01/2025 9:13 AM EST) Hemoglobin A1C 6.8(A) 4.0 - 6.0 % Blood Capillary blood specimen / Unknown 01/01/2025 9:13 AM EST Lb Stevens NP POINT OF CARE TEST ENTER/ROMULO T ORDERABLES Final Result * MR Cervical Spine w/o Contrast (11/24/2024) Anatomical Region Laterality Modality Spine, C-spine Magnetic Resonan ce Lb Stevens NP IMG MRI PROCEDURES Final Res ult * Hm Colonoscopy (11/14/2024 10:38 AM EST) Historical Provider MD HEALTH MAINTENANCE Final Result * Lipid Panel, Standard (09/06/2024) Blood Venous blood specimen / Unknown Lb Stevens PBX [facility] BLOOD ORDERABLES Final R esult EXTERNAL LAB * Microalbumin, Random Urine w/Creatinine (06/24/2023 7:07 AM EDT) Micro-Albumin 14.0 (<20) MG/L [facility] Comment: The urine microalbumin test is designed to monitor renal function. When screening for Bence Bowens proteinuria, urine electrophoresis is recommended. Malb/Creat Ratio 15.6 (0-20) MG/GM [facility] Urine Creat For Micro Albumin 89.0 MG/DL [facility] Comment: Testing performed or reported by [facility], a Service of [facility], [address] [place] [address] Cruz French MD, Photo Finish Photographer [facility]# [id number] 06/24/2023 7:07 AM EDT 06/24/2023 7:08 AM EDT Lb Stevens PBX W[facility] CH[facility] URINE ORDERABLES Final R esult Performing Organization Address [facility] Co de Phone Number [facility] [place] [address] from Last 3 Months or Most Recently Relevant to Health Maintenance Insurance BCBS MCR ADV HMO [facility] Care Teams Cryptographic Technician Relationship Specialty Start Date End Date Lb Stevens NP [address] [place] [address] PCP - General Internal Medicine 10/28/22
--- OUTSIDE RECORDS SUMMARY | 2025-01-17 10:12 | XMS_ITS | Encounter Summary ---
Author Organization [employer] Address [address] [facility] [address] [place] [address] Care Team Providers Care Facilities Planner Name Role Phone Hilda Lb MONTGOMERY Primary Care Provider + [phone] Encounter Details Date Type Department Care Team (Late st Contact Info) Description 11/15/2024 Orders Only [facility] [address] [place] [address] ProviderAna MD Social History Tobacco Use Types Packs/Day Years Used Date Smoking Tobacco: Former Cigarettes Alcohol Use Standard Drinks/Week Comments Not Currently 0 (1 standard drink = 0.6 oz pur e alcohol) Housing Stability Answer Date Recorded What is your housing situation today? I have ralph rivera 09/03/[address] you [...] Orientation Straight 10/14/2022 12 :05 PM EST documented as of this encounter Plan of Treatment Upcoming Encounters Date Type Department Care Team (Late st Contact Info) Description 04/30/2025 9:00 AM EDT Office Visit [facility] [address] [place] [address] Lb Stevens NP [address] [place] [address] documented as of this encounter Procedures Procedure Name Priority Date/Time Associated Diagnosis Comments HM COLONOSCOPY Routine 11/14/2024 10:38 AM EST documented in this encounter Results * Hm Colonoscopy (11/14/2024 10:38 AM EST) us Historical Provider HEALTH MAINTENANCE Final Result documented in this encounter Visit Diagnoses Not on filedocumented in this encounter Care Teams Facilities Planner Relationship Specialty Start Date End Date Lb Stevens NP [address] [place] [address] PCP - General Internal Medicine 10/28/22 documented as of this encounter
--- OUTSIDE RECORDS SUMMARY | 2025-01-17 10:12 | XMS_ITS | Data Portability ---
Author Organization [facility] ([place], [place]), , [facility] Address [address] [place] [address] Assessment No assessment recorded. Plan of Treatment Reminders Order Date Submit Date Provider Last Modified By Organization Details Last Modified Time Details Appointments None recorded. Lab CBC 2016 017 [facility], [address] [place] [address], [id number], 7 12:34:29 BMP, serum or plasma 2016 017 [facility], [address] [place] [address], [id number], 7 14:41:14 uric acid, serum or plasma 2016 017 [facility], [address] [place] [address], [address], 7 15:39:39 Referral None recorded. Procedures None recorded. Surgeries None recorded. Imaging electrocar diogram 2016 017 [email or web address] [facility], [address] [place] [address], [address], 7 13:58:07 Medication Orders Polytrim 10,000 unit-1 mg/mL eye drops 2016 017 INTERFACE [id number], [address] [place], [address], 7 09:46:43 metformin 500 mg tablet 2016 017 pthaler [id number], [address] [place], [address], 13:26:39 Patient TargetsNo targets recorded. Patient Instructions Encounter Date Encounter Id Patient Instructions Last Modified By Organization Details Last Modified Time 08/12/2017 [id number] After a discussi on of treatment options, which included consideration of best practices, patient preferences, and the patient? s individual lifestyle and treatment goals, as well as consideration and attempted mitigation of any barriers to meeting the patient? s goals, the above treatment plan and objectives were adopted: [email or web address] Not available 08/13/2017 08:22:31 10/03/2017 [id number] My Health To Do List Specific Analgesia Plan: {{Continue present regimen* Adjust dose of present analgesic Switch analgesics Add/Adj ust concomitant therapy Discontinu e/taper off opioid therapy}} Specific Goals for next visit {{increase exercise* start stress management improve sleeping start Yoga start TaiChi see therapist}}The patient is currently {{at* not at}} their goal of safe, stable use of narcotic pain medication to improve their functioning in life. Since the last visit there has been {{activity of concern no activity of concern*}}:{{# ove ruse of meds request for an early refill abuse of staff noncomplianc e with UDS or pill count requests abnormal UDS}} Patient today is {{at high risk at moderate risk at low risk*}} for {{abuse of meds* misuse of meds}}. Monitoring will include {{pill counts repeat UDS* closer follow-up with shorter scripts}}. Patients current goals of {{better sleep more activity* return to work return to school improved ADL's improved self care improved function in roles}} were discussed with patient, unlikelihood of 100% reduction in pain made clear. Patient has read narcotics contract and understands the properties of narcotic medication. [email or web address] Not available 10/03/2017 09:25:53 Reason for Referral None Reported. Results Created Date Observation Date Name Description Value Unit Range Abnormal Flag Note LastModifiedBy Organization Detail LastModifiedTime 08/12/20 17 08/12/2017 lazaro barnes diogr am Result see result in EMR Not Available [address], [address], 08/12/2017 09:42:20 06/22/20 17 06/22/2017 HbA1c (hemo globi n A1c), blood hemoglobin A1C 7.2 % 4.8-6. 0 high Goal: <7% in Patie nts with Diabe dennis Not Available [address], [address], 06/22/2017 09:00:48 06/22/20 17 06/22/2017 HbA1c (hemo globi n A1c), blood estimated average glucose 159.9 mg/dL Not Available [address], [address], 06/22/2017 09:00:48 06/22/20 17 06/22/2017 lipid panel , serum cholesterol 216 mg/dL <200 mg/dl Joe able 200-2 39 mg/dl Borde rline High >240 mg/dl High Not Available [address], [address], 06/22/2017 12:03:42 06/22/20 17 06/22/2017 lipid panel , serum triglyceride s 522 mg/dL high LIPS= Speci men Sligh tly Lipem ic. Chem Resul ts may be effec savannah. <150 mg/dL Maria Guadalupe l 150-1 99 mg/dL Borde rline High 200-4 99 mg/dL High >500 mg/dL Very High Not Available [address], [address], 06/22/2017 12:03:42 06/22/20 17 06/22/2017 lipid panel , serum direct HDL 35 mg/dL Not Available [address], [address], 06/22/2017 12:03:42 06/22/20 17 06/22/2017 LDL, direc t, serum direct LDL 117 mg/dL RISK CATEG ORY LDL GOAL _ CHD or CHD Risk Equiv alent s <100 mg/dl (10-y ear risk >20%) 2+ Risk Facto rs <130 mg/dl (10-y ear risk <= 20%) 0-1 Risk Facto r??? <160 mg/dl ??? Almos t all peopl e with 0-1 risk facto r have a 10 year risk <10%, thus 10 year risk asses ment in peopl e with 0-1 risk facto r is not dadanina morales. Not Available [address], [address], 06/22/2017 12:16:19 08/12/20 17 08/12/2017 CBC WBC 6.2 K/??L 4.2-9. 1 Not Available [address], [address], 08/12/2017 12:34:29 08/12/20 17 08/12/2017 CBC RBC 4.88 M/??L 4.63-6 .08 Not Available [address], [address], 08/12/2017 12:34:29 08/12/20 17 08/12/2017 CBC HGB 14.1 g/dL 13.7-1 7.5 Not Available [address], [address], 08/12/2017 12:34:29 08/12/20 17 08/12/2017 CBC HCT 42.9 % 40.1-5 1.0 Not Available [address], [address], 08/12/2017 12:34:29 08/12/20 17 08/12/2017 CBC MCV 87.9 ??L 79.0-9 2.2 Not Available [address], [address], 08/12/2017 12:34:29 08/12/2008/12/2017 CBC MCH 28.9 pg 25.7-3 2.2 Not Available [address], [address], 08/12/2017 12:34:29 08/12/20 17 08/12/2017 CBC MCHC 32.9 g/dL 32.3-3 6.5 Not Available [address], [address], 08/12/2017 12:34:29 08/12/20 17 08/12/2017 CBC plt 255.0 K/??L 163.0- 337.0 Not Available [address], [address], 08/12/2017 12:34:29 08/12/20 17 08/12/2017 CBC MPV 11.5 9.4-12 .4 Not Available [address], [address], 08/12/2017 12:34:29 08/12/20 17 08/12/2017 CBC neut% 45.4 % 34.0-6 7.9 Not Available [address], [address], 08/12/2017 12:34:29 08/12/20 17 08/12/2017 CBC neut# 2.8 1.8-5. 4 Not Available [address], [address], 08/12/2017 12:34:29 08/12/20 17 08/12/2017 CBC lymph % 42.1 % 21.8-5 3.1 Not Available [address], [address], 08/12/2017 12:34:29 08/12/20 17 08/12/2017 CBC lymph # 2.6 K/??L 1.3-3. 6 Not Available [address], [address], 08/12/2017 12:34:29 08/12/20 17 08/12/2017 CBC mono% 9.0 % 5.3-12 .2 Not Available [address], [address], 08/12/2017 12:34:29 08/12/20 17 08/12/2017 CBC mono# 0.6 0.3-0. 8 Not Available [address], [address], 08/12/2017 12:34:29 08/12/20 17 08/12/2017 CBC eo% 2.4 % 0.8-7. 0 Not Available [address], [address], 08/12/2017 12:34:29 08/12/20 17 08/12/2017 CBC eo# 0.2 0.0-0. 5 Not Available [address], [address], 08/12/2017 12:34:29 08/12/20 17 08/12/2017 CBC baso% 1.1 % 0.2-1. 2 Not Available [address], [address], 08/12/2017 12:34:29 08/12/20 17 08/12/2017 CBC baso# 0.1 0.0-0. 1 high Not Available [address], [address], 08/12/2017 12:34:29 08/12/20 17 08/12/2017 CBC RDW-CV 12.8 % 11.6-1 4.4 Not Available [address], [address], 08/12/2017 12:34:29 08/12/20 17 08/12/2017 BMP, serum or plasm a glucose 210 mg/dL 70-100 high LIPS= Speci men Sligh tly Lipem ic. Chem Resul ts may be effec savannah. Not Available [address], [address], 08/12/2017 14:41:14 08/12/20 17 08/12/2017 BMP, serum or plasm a BUN 15 mg/dL 7-18 Not Available [address], [address], 08/12/2017 14:41:14 08/12/20 17 08/12/2017 BMP, serum or plasm a creatinine 1.1 mg/dL 0.8-1. 3 Not Available [address], [address], 08/12/2017 14:41:14 08/12/20 17 08/12/2017 BMP, serum or plasm a B/C 13.6 ratio Not Available [address], [address], 08/12/2017 14:41:14 08/12/2008/12/2017 BMP, serum or plasm a GFR -non 73.1 mL/mi n Recom kendra d GFR by the Natio nal Kidne y Found ation >60 mL/mi n/1.7 3m2 - Maria Guadalupe l <60 mL/mi n/1.7 3m2 - Chron ic Kidne y Disea se <15 mL/mi n/1.7 3m2 - Kidne y Failu re Not Available [address], [address], 08/12/2017 14:41:14 08/12/2008/12/2017 BMP, serum or plasm a GFR - if 88.4 mL/mi n For Afric an Ameri can patie nts: Resul ts Multi plied by 1.21 Not Available [address], [address], 08/12/2017 14:41:14 08/12/2008/12/2017 BMP, serum or plasm a sodium 142 mmol/ L 136-14 5 Not Available [address], [address], 08/12/2017 14:41:14 08/12/20 17 08/12/2017 BMP, serum or plasm a potassium 4.8 mmol/ L 3.5-5. 1 HEMS= Speci men Sligh tly Hemol yzed. Chem Resul ts may be effec savannah. Not Available [address], [address], 08/12/2017 14:41:14 08/12/20 17 08/12/2017 BMP, serum or plasm a chloride 104 mmol/ L 96-107 Not Available [address], [address], 08/12/2017 14:41:14 08/12/20 17 08/12/2017 BMP, serum or plasm a anion gap 14.3 5.0-15 .0 Not Available [address], [address], 08/12/2017 14:41:14 08/12/20 17 08/12/2017 BMP, serum or plasm a CO2 24 mmol/ L 21-32 Not Available [address], [address], 08/12/2017 14:41:14 08/12/20 17 08/12/2017 BMP, serum or plasm a calcium 9.1 mg/dL 8.5-10 .3 Not Available [address], [address], 08/12/2017 14:41:14 09/26/20 17 09/26/2017 CBC WBC 8.4 K/??L 4.2-9. 1 Not Available [address], [address], 09/26/2017 11:13:40 09/26/20 17 09/26/2017 CBC RBC 5.07 M/??L 4.63-6 .08 Not Available [address], [address], 09/26/2017 11:13:40 09/26/20 17 09/26/2017 CBC HGB 14.6 g/dL 13.7-1 7.5 Not Available [address], [address], 09/26/2017 11:13:40 09/26/20 17 09/26/2017 CBC HCT 43.4 % 40.1-5 1.0 Not Available [address], [address], 09/26/2017 11:13:40 09/26/20 17 09/26/2017 CBC MCV 85.6 ??L 79.0-9 2.2 Not Available [address], [address], 09/26/2017 11:13:40 09/26/20 17 09/26/2017 CBC MCH 28.8 pg 25.7-3 2.2 Not Available [address], [address], 09/26/2017 11:13:40 09/26/20 17 09/26/2017 CBC MCHC 33.6 g/dL 32.3-3 6.5 Not Available [address], [address], 09/26/2017 11:13:40 09/26/20 17 09/26/2017 CBC plt 273.0 K/??L 163.0- 337.0 Not Available [address], [address], 09/26/2017 11:13:40 09/26/20 17 09/26/2017 CBC MPV 11.0 9.4-12 .4 Not Available [address], [address], 09/26/2017 11:13:40 09/26/20 17 09/26/2017 CBC neut% 49.8 % 34.0-6 7.9 Not Available [address], [address], 09/26/2017 11:13:40 09/26/20 17 09/26/2017 CBC neut# 4.2 1.8-5. 4 Not Available [address], [address], 09/26/2017 11:13:40 09/26/20 17 09/26/2017 CBC lymph % 40.3 % 21.8-5 3.1 Not Available [address], [address], 09/26/2017 11:13:40 09/26/20 17 09/26/2017 CBC lymph # 3.4 K/??L 1.3-3. 6 Not Available [address], [address], 09/26/2017 11:13:40 09/26/20 17 09/26/2017 CBC mono% 7.1 % 5.3-12 .2 Not Available [address], [address], 09/26/2017 11:13:40 09/26/20 17 09/26/2017 CBC mono# 0.6 0.3-0. 8 Not Available [address], [address], 09/26/2017 11:13:40 09/26/20 17 09/26/2017 CBC eo% 1.9 % 0.8-7. 0 Not Available [address], [address], 09/26/2017 11:13:40 09/26/20 17 09/26/2017 CBC eo# 0.2 0.0-0. 5 Not Available [address], [address], 09/26/2017 11:13:40 09/26/20 17 09/26/2017 CBC baso% 0.9 % 0.2-1. 2 Not Available [address], [address], 09/26/2017 11:13:40 09/26/20 17 09/26/2017 CBC baso# 0.1 0.0-0. 1 high Not Available [address], [address], 09/26/2017 11:13:40 09/26/20 17 09/26/2017 CBC RDW-CV 12.6 % 11.6-1 4.4 Not Available [address], [address], 09/26/2017 11:13:40 09/26/20 17 09/26/2017 HbA1c (hemo globi n A1c), blood hemoglobin A1C 7.4 % 4.8-6. 0 high Goal: <7% in Patie nts with Diabe dennis Not Available [address], [address], 09/26/2017 11:42:39 09/26/20 17 09/26/2017 HbA1c (hemo globi n A1c), blood estimated average glucose 165.7 mg/dL Not Available [address], [address], 09/26/2017 11:42:39 09/26/20 17 09/26/2017 CMP, serum or plasm a glucose 151 mg/dL 70-100 high Not Available [address], [address], 09/26/2017 15:39:38 09/26/20 17 09/26/2017 CMP, serum or plasm a BUN 22 mg/dL 7-18 high Not Available [address], [address], 09/26/2017 15:39:38 09/26/20 17 09/26/2017 CMP, serum or plasm a creatinine 1.2 mg/dL 0.8-1. 3 Not Available [address], [address], 09/26/2017 15:39:38 09/26/20 17 09/26/2017 CMP, serum or plasm a B/C 18.3 ratio Not Available [address], [address], 09/26/2017 15:39:38 09/26/20 17 09/26/2017 CMP, serum or plasm a GFR -non 66.1 mL/mi n Recom kendra d GFR by the Natio nal Kidne y Found ation >60 mL/mi n/1.7 3m2 - Maria Guadalupe l <60 mL/mi n/1.7 3m2 - Chron ic Kidne y Disea se <15 mL/mi n/1.7 3m2 - Kidne y Failu re Not Available [address], [address], 09/26/2017 15:39:38 09/26/20 17 09/26/2017 CMP, serum or plasm a GFR - if 80.0 mL/mi n For Afric an Ameri can patie nts: Resul ts Multi plied by 1.21 Not Available [address], [address], 09/26/2017 15:39:38 09/26/20 17 09/26/2017 CMP, serum or plasm a sodium 140 mmol/ L 136-14 5 Not Available [address], [address], 09/26/2017 15:39:38 09/26/20 17 09/26/2017 CMP, serum or plasm a potassium 4.8 mmol/ L 3.5-5. 1 Not Available [address], [address], 09/26/2017 15:39:38 09/26/20 17 09/26/2017 CMP, serum or plasm a chloride 101 mmol/ L 96-107 Not Available [address], [address], 09/26/2017 15:39:38 09/26/20 17 09/26/2017 CMP, serum or plasm a anion gap 12.6 5.0-15 .0 Not Available [address], [address], 09/26/2017 15:39:38 09/26/20 17 09/26/2017 CMP, serum or plasm a CO2 26 mmol/ L 21-32 Not Available [address], [address], 09/26/2017 15:39:38 09/26/20 17 09/26/2017 CMP, serum or plasm a calcium 9.3 mg/dL 8.5-10 .3 Not Available [address], [address], 09/26/2017 15:39:38 09/26/20 17 09/26/2017 CMP, serum or plasm a total protein 7.6 g/dL 6.4-8. 2 Not Available [address], [address], 09/26/2017 15:39:38 09/26/20 17 09/26/2017 CMP, serum or plasm a albumin 4.0 g/dL 3.4-5. 0 Not Available [address], [address], 09/26/2017 15:39:38 09/26/20 17 09/26/2017 CMP, serum or plasm a globulin 3.6 g/dL Not Available [address], [address], 09/26/2017 15:39:38 09/26/20 17 09/26/2017 CMP, serum or plasm a A/G 1.1 ratio 0.8-2. 0 Not Available [address], [address], 09/26/2017 15:39:38 09/26/20 17 09/26/2017 CMP, serum or plasm a total bilirubin 0.40 mg/dL 0.00-1 .00 Not Available [address], [address], 09/26/2017 15:39:38 09/26/20 17 09/26/2017 CMP, serum or plasm a AST 28 U/L 15-37 Not Available [address], [address], 09/26/2017 15:39:38 09/26/20 17 09/26/2017 CMP, serum or plasm a ALT 37 U/L 30-65 Not Available [address], [address], 09/26/2017 15:39:38 09/26/20 17 09/26/2017 CMP, serum or plasm a alk. phos. 114 U/L 50-136 Not Available [address], [address], 09/26/2017 15:39:38 09/26/20 17 09/26/2017 lipid panel , serum cholesterol 226 mg/dL <200 mg/dl Joe able 200-2 39 mg/dl Borde rline High >240 mg/dl High Not Available [address], [address], 09/26/2017 15:39:38 09/26/20 17 09/26/2017 lipid panel , serum triglyceride s 398 mg/dL high <150 mg/dL Maria Guadalupe l 150-1 99 mg/dL Borde rline High 200-4 99 mg/dL High >500 mg/dL Very High Not Available [address], [address], 09/26/2017 15:39:38 09/26/20 17 09/26/2017 lipid panel , serum direct HDL 34 mg/dL Not Available [address], [address], 09/26/2017 15:39:38 09/26/20 17 09/26/2017 uric acid, serum or plasm a uric acid 6.2 mg/dL 3.5-7. 2 Not Available [address], [address], 09/26/2017 15:39:39 09/26/20 17 09/26/2017 LDL, direc t, serum direct LDL 142 mg/dL RISK CATEG ORY LDL GOAL _ CHD or CHD Risk Equiv alent s <100 mg/dl (10-y ear risk >20%) 2+ Risk Facto rs <130 mg/dl (10-y ear risk <= 20%) 0-1 Risk Facto r??? <160 mg/dl ??? Almos t all peopl e with 0-1 risk facto r have a 10 year risk <10%, thus 10 year risk asses ment in peopl e with 0-1 risk facto r is not herve parisy. Not Available [facility] [address] [place], [address], 09/26/2017 16:29:30 11/14/20 24 11/14/2024 POC GLU POC glu 136 70 - 100 high Not Available [facility] [address] [place], [address], 11/14/2024 08:50:07 08/12/20 17 elect rocar diogr am No observ ation record ed. [email or web address] Not Available 2016 07:40:54 10/08/20 24 10/08/2024 XR, hip + pelvi s, bilat eral, 5 or more view CLINIC AL HISTOR Y: Bilate ral hip pain. TECHNI QUE: Two views of each hip are obtain ed. An AP view of the pelvis is added. Weight bearin g images are obtain ed. COMPAR SHANTA: None. FINDIN GS: No fractu re of the bony pelvis is seen. The sacroi liac joints are unrema rkable . RIGHT HIP: There is no fractu re, sublux ation, or disloc ation. There is mild, focal hip joint space narrow ing on the latera l projec tion. There are soft tissue calcif icatio ns adjace nt to the acetab ulum and greate r trocha nter. There is acetab ular spurri ng. LEFT HIP: There is no fractu re, sublux ation, or disloc ation. There is preser vation of the hip joint space. There is acetab ular spurri ng. IMPRES ALEJANDRO: No acute bone abnorm ality. Bilate ral hip degene rative change . Readin g Physic treasure: Oumar Monterroso ms eoppegard [facility] (Imaging) [address] [place], [address], 10/08/2024 10:46:30 Result Notes None recorded. Problems Name Problem SNOMED Code Status Onset Date Resolution Date Notes Provider Name and Address Organization Details Recorded Time Pain in wrist 75556424 Completed 10/17/2013 Not Available [facility] 3 02:02:23 Syncope 901331565 Active Mallorie Tucker NP [address] [place] [address], [address] , [facility] 3 13:33:53 Calculus of kidney and ureter 686179595 Active Tushar Byrd MD [address] [place] [address], [address] , [facility] 6 11:25:32 Chronic hepatiti s C 568932441 Active un measurab le viral level. Tushar Byrd MD [address] [place] [address], [address] , [facility] 6 09:50:36 Chronic hoarsene ss 74389315501 05 Completed 201510/03/2017 Tushar Byrd MD [address] [place] [address], [address] , [facility] 7 10:12:06 Gout 68967768 Active 2016 Tushar Byrd MD [address] [place] [address], [address] , [facility] 7 15:53:36 Mixed hyperlip idemia 333664866 Active 2005 Tushar Byrd MD [address] [place] [address], , [facility] 5 17:05:03 Contusio n 088954840 Completed 200407/29/2009 Not Available [facility] 3 03:09:39 Presbyop ia 18726396 Completed 200507/29/2009 Not Available [facility] 3 03:09:39 Essentia l hyperten alejandro 28675912 Active 2008 [facility] 5 12:33:37 Osteoart hritis of knee 354359951 Active 2004 Not Available [facility] 3 03:09:39 Multiple joint pain 75029560 Completed 200807/29/2009 Not Available [facility] 3 03:09:39 Benign essentia l hyperten alejandro 4048975 Active 2008 Tushar Byrd MD [address] [place] [address], [address] , [facility] 6 12:44:59 Glucose level outside referenc e range 360990945 Completed 200707/29/2009 Not Available [facility] 3 03:09:39 Psoriasi s with arthropa thy Active Tushar Byrd MD [address] [place] [address], [address] , [facility] 6 12:44:59 Sciatica 50742998 Active Not Available [facility] 3 03:09:39 Sciatica 69809798 Completed 200607/29/2009 Not Available [facility] 3 03:09:39 Localize d, primary osteoart hritis 065765828 Active 2004 Not Available [facility] 3 03:09:39 Knee pain Completed 200407/29/2009 Not Available [facility] 3 03:09:39 Type 2 diabetes mellitus without complica tion 103305980 Active 2007 Tushar Byrd MD [address] [place] [address], [address] , [facility] 6 12:44:59 Dry eyes 237585689 Completed 200707/29/2009 Not Available [facility] 3 03:09:39 Sprain of knee and leg Completed 200407/29/2009 Not Available [facility] 3 03:09:39 Impaired fasting glycemia 458115052 Completed 200707/29/2009 Not Available [facility] 3 03:09:39 Degenera tive joint disease involvin g multiple joints 873763155 Active Not Available [facility] 3 03:09:39 Pain in wrist 13058106 Completed 200407/29/2009 Not Available [facility] 3 03:09:39 Backache 605288663 Completed 200807/29/2009 [facility] Available [facility] 3 03:09:39 Erysipel as 13991665 Completed 200607/29/2009 Not Available [facility] 3 03:09:39 Otogenic otalgia 72633408 Completed 200407/29/2009 Not Available [facility] 3 03:09:39 Headache 23211230 Active 2003 Not Available [facility] 3 03:09:39 Cellulit is and abscess of neck 197016660 Completed 10/17/2013 Not Available [facility] 3 02:04:22 Cellulit is 633751516 Completed 200707/29/2009 Not Available [facility] 3 03:09:39 Cellulit is and abscess of face 917103589 Completed 200307/29/2009 Not Available [facility] 3 03:09:39 Impacted cerumen 42513936 Completed 200407/29/2009 Not Available [facility] 3 03:09:39 Pure hypercho lesterol emia 709703556 Completed 200607/29/2009 Not Available [facility] 3 03:09:39 Localize d adiposit y 523162065 Completed 200307/29/2009 Not Available [facility] 3 03:09:39 Idiopath ic peripher al neuropat hy 08331562 Active 2005 Not Available [facility] 3 03:09:39 Chest pain 57495169 Completed 200810/17/2013 Not Available [facility] 3 02:01:46 Chronic pain 55991562 Active Tushar Byrd MD [address] [place] [address], [address] , [facility] 6 12:44:59 Herpes zoster 0630403 Completed 10/17/2013 Not Available [facility] 3 02:02:57 Low back pain 765345949 Active Not Available [facility] 3 03:09:39 Low back pain 798892098 Completed 200307/29/2009 Not Available [facility] 3 03:09:39 Sprain of wrist 91897466 Completed 200407/29/2009 Not Available [facility] 3 03:09:39 Mononeur itis 51374646 Completed 200507/29/2009 Not Available [facility] 3 03:09:39 Current knee cartilag e tear Completed 200407/29/2009 Not Available [facility] 3 03:09:39 Pain in limb 15957963 Completed 200407/29/2009 Not Available [facility] 3 03:09:39 Cellulit is and abscess of trunk 210511476 Completed 200607/29/2009 Not Available [facility] 3 03:09:39 Problem Notes None recorded. Procedures Surgical History Date Name Laterality Status Provider Name and Address Organization Details Recorded Time 09/20/20 17 Refraction completed Raquel Salamanca [facility] ([place], [place]) 09/20/2017 09:34:03 08/23/20 17 Corneal Foreign Body removal completed Jeri Jc, OD [address] [place] [address], [address], [facility] 08/23/2017 10:03:16 02/02/20 17 [address]7315: Therapeutic Exercise completed Madison Padilla, PT [address] [place], [address], [facility] 02/01/2017 11:24:32 01/28/20 17 Physical Activity Counselling completed Madison Padilla, PT [address] [place], [address], [facility] 01/27/2017 10:01:28 01/28/20 17 51201: PT Eval, Moderate Complexity completed Madison Padilla, PT [address] [place], [address], [facility] 01/28/2017 12:49:59 01/08/20 16 Refraction completed Raquel Salamanca [facility] [place]) 01/08/2016 12:05:38 07/21/20 15 Cerumen Removal completed Renée Diaz RN, BSN [facility] ([place], [place]) 07/21/2015 16:10:00 07/20/20 11 Nutritional Diagnosis NB 1.1 completed Lluvia Garrido, Ms, Rdn, Ldn, CDE [address] [place] [address], [address], [facility] 07/20/2011 11:47:03 06/18/20 11 Cerumen Removal completed Kalli Givens RN [facility] ([place], [place]) 06/18/2011 10:42:06 03/19/20 11 Medicare Annual Wellness Visit completed Katyarich Peterson [facility] 03/19/2011 11:12:15 03/19/20 11 Medicare Risk for Falls Screen completed Katyarich Peterson [facility] 03/19/2011 11:12:15 03/19/20 11 Advanced Care Planning completed Katyarich Peterson [facility] 03/19/2011 11:12:15 07/14/20 09 Cerumen Removal completed Latasha Mejia LPN [facility] [facility] ([place], [place]) 07/14/2009 11:34:48 Imaging Results Imaging Date Name Status LastModified by Organization Details LastModified Time 08/12/2017 electrocardiogram completed [facility]green Informa tion not available 08/15/2017 07:40:54 10/08/2024 XR, hip + pelvis, bilateral, 5 or more [email or web address] [address], [place], [address], 10/08/2024 10:46:30 Procedure Notes None recorded. Medical Equipment None Reported. Allergies Allergen ID Allergen Name Allergen Category Reaction Reaction Severity Criticality Documentation Date Start Date Code Code System Note Provider Name and Address Organization Details Recorded Time Product containin g penicilli n (product) medicatio n Not available Not available Not available 09/27/2009 80822 8001 SNOMED Not Available [facility] 1 06:05:20 800726 Indocin medicatio n Not available Not available Not available 03/24/2017 10264 5 RxNorm chest pain gerd Tushar Byrd MD [address] [place] [address], [facility] [place], [address] [place] [address] 7 10:08:44 Medications Name Sig Start Date Stop Date Status Note LastModified by Organization Details LastModified Time Prescript ion - Renewal 09/20 completed Not Available Not Available Not Available cyclobenz aprine 10 mg tablet TAKE 1 TABLET (10 MG) BY MOUTH AT BEDTIME NEEDED FOR MUSCLE SPASM active Not Available Not Available No t Available atorvasta tin 40 mg tablet TAKE 1 TABLET BY MOUTH EVERY DAY active Not Available Not Available No t Available metformin 500 mg tablet TAKE 1 TABLET BY MOUTH TWICE A DAY WITH FOOD active Not Available Not Available No t Available atorvasta tin 80 mg tablet TAKE 1 TABLET BY MOUTH EVERY DAY active Not Available Not Available No t Available prednison e 10 mg tablet TAKE 4 TABS BY MOUTH DAILY X3DAYS, 3 DAILY X3 DAYS, 2 DAILY X3 DAYS, THEN 1 DAILY X3 DAYS 08/12 completed Not Available Not Available Not Available ketoconaz ole 2 % shampoo SHAMPOO THREE TIMES A WEEK, LEAVE ON FOR 5-10 MINUTES, THEN RINSE. active Not Available Not Available No t Available nabumeton e 750 mg tablet TAKE 1 TABLET BY MOUTH TWICE A DAY NEEDED active Not Available Not Available No t Available pravastat in 40 mg tablet Take 1 tablet every day by oral route at bedtime. 2013 active Not Available Not Available Not Avai lable ofloxacin 0.3 % eye drops INSTILL 1 DROP IN LEFT EYE FOUR TIMES A DAY FOR 1 WEEK active Not Available Not Available No t Available Vicodin 5 mg-500 mg tablet Take 1 tablet every 4 hours by oral route as needed. 10/31 completed Not Available Not Available Not Available Keflex 500 mg capsule Take 1 capsule every 6 hours by oral route for 10 days. 07/06 completed Not Available Not Available Not Available meloxicam 15 mg tablet TAKE 1 TABLET (15 MG) BY MOUTH ONCE PER DAY. active Not Available Not Available No t Available gabapenti n 400 mg capsule Take 1 capsule 3 times a day by oral route. active Not Available Not Available No t Available prednison e 5 mg tablet 07/14 completed Not Available Not Available Not Available clindamyc in HCl 150 mg capsule Take 1 capsule every 6 hours by oral route. 07/19 completed Not Available Not Available Not Available amlodipin e 2.5 mg tablet TAKE 1 TABLET BY MOUTH EVERY DAY active Not Available Not Available No t Available simvastat in 80 mg tablet Take 1 tablet every day by oral route at bedtime. 2009 active Not Available Not Available Not Avai lable allopurin ol 100 mg tablet TAKE 2 TABLETS BY MOUTH EVERY DAY active Not Available Not Available No t Available omeprazol e 40 mg capsule,d elayed release TAKE 1 CAPSULE BY MOUTH EVERY DAY active Not Available Not Available No t Available simvastat in 40 mg tablet Take 1 tablet every day by oral route for 30 days.at night 2008 active Not Available Not Available Not Avai lable acyclovir 800 mg tablet Take 1 tablet every 4 hours by oral route for 10 days. 07/07 completed Not Available Not Available Not Available ketorolac 0.5 % eye drops INSTILL 1 DROP IN LEFT EYE THREE TIMES A DAY FOR 5 DAYS active Not Available Not Available No t Available meloxicam 7.5 mg tablet 1-2 tabltes once a day with food for 30 days 03/24 completed Not Available Not Available Not Available oxycodone -acetamin ophen 5 mg-325 mg tablet TAKE 1 TABLET BY MOUTH 4 TIMES A DAY 2017 active Not Available Not Available Not Avai lable rifampin 300 mg capsule Take 1 capsule every 12 hours by oral route for 10 days. 02/24 completed Not Available Not Available Not Available Vitamin D3 10 mcg (400 unit) tablet TAKE 2 TABLETS (20 MCG) BY MOUTH ONCE PER DAY. active Not Available Not Available No t Available pravastat in 80 mg tablet TAKE 1 TABLET BY MOUTH EVERY NIGHT AT BEDTIME active Not Available Not Available No t Available tamsulosi n 0.4 mg capsule TAKE 1 CAPSULE (0.4 MG) BY MOUTH ONCE PER DAY. active Not Available Not Available No t Available doxycycli ne monohydra te 100 mg capsule Take 1 capsule twice a day by oral route. 2008 active Not Available Not Available Not Avai lable erythromy fozia 5 mg/gram (0.5 %) eye ointment PLACE 1/2 INCH INTO LEFT EYE 3 TIMES A DAY FOR 5 DAYS active Not Available Not Available No t Available lisinopri l 10 mg tablet TAKE 1 TABLET BY MOUTH EVERY DAY active Not Available Not Available No t Available naproxen 500 mg tablet,de layed release Take 1 tablet twice a day by oral route. 2009 active Not Available Not Available Not Avai lable polymyxin B sulfate 10,000 unit-trim ethoprim 1 mg/mL eye drops INSTILL 1 DROP INTO RIGHT EYE 4 TIMES PER DAY FOR 5 DAYS, THEN STOP. active Not Available Not Available No t Available clotrimaz ole 1 % topical solution active Not Available Not Available Not Available indometha fozia 50 mg capsule TAKE ONE CAPSULE BY MOUTH 3 TIMES A DAY FOR 5 DAYS. 03/19 completed Stopped after side effects 03/16/17 Not Available Not Available Not Available gabapenti n 300 mg capsule TAKE ONE CAPSULE BY MOUTH 3 TIMES A DAY active Not Available Not Available No t Available omeprazol e 20 mg capsule,d elayed release BID active Not Available Not Available Not Available gabapenti n 100 mg capsule Take 3 capsules 3 times a day by oral route with meals for 30 days. active Not Available Not Available No t Available colchicin e 0.6 mg tablet TAKE 1 TABLET BY MOUTH EVERY DAY 03/30 completed Not Available Not Available Not Available ketoconaz ole 2 % topical cream APPLY TO AFFECTED AREA TWICE A DAY active Not Available Not Available No t Available morphine 15 mg immediate release tablet TAKE 1 TABLET BY MOUTH EVERY 4 HOURS active Not Available Not Available No t Available indometha fozia ER 75 mg capsule,e xtended release TAKE ONE CAPSULE BY MOUTH EVERY DAY NEEDED active Not Available Not Available No t Available clotrimaz ole 1 % topical cream APPLY TOPICALL Y 2 TIMES DAILY. USE ON TOENAILS active Not Available Not Available No t Available naproxen 500 mg tablet TAKE 1 TABLET BY MOUTH TWICE A DAY 03/19 completed Not Available Not Available Not Available oxycodone 5 mg tablet TAKE 1 TABLET (5 MG) BY MOUTH EVERY 6 (SIX) HOURS IF NEEDED FOR MODERATE PAIN FOR UP TO 28 DAYS. active Not Available Not Available No t Available Bactrim DS 800 mg-160 mg tablet Take 2 tablets every 12 hours by oral route for 7 days. 02/25 completed Not Available Not Available Not Available OneTouch UltraSoft Lancets 1 qd 2010 active Not Available Not Available Not Avai lable cholecalc iferol (vitamin D3) active 50,000 q week Not Available Not Available Not Available FreeStyle Lite Meter kit TEST BLOOD SUGAR TWICE A DAY DIRECTED active Not Available Not Available No t Available FreeStyle Lite Strips 1 EACH BY OTHER ROUTE IF NEEDED (TEST BLOOD GLUCOSE LEVELS NEEDED). active Not Available Not Available No t Available GaviLyte- G 236 gram-22.7 4 gram-6.74 gram-5.86 gram oral solution 4000ML ORALLY PT HAS INSTRUCT IONS 1 DAYS active Not Available Not Available No t Available Vitals Date Recorded Body height Body mass index (BMI) Body weight Body temperature Systolic blood pressure Diastolic blood pressure Provider Name and Address Organization Details Last Updated DateTime 7 171.45 cm 33.3 kg/m2 39774.9 5 g 97.9 [degF] 124 mm[Hg] 72 mm[Hg] Katya Peterson MA [facility] ([place], [place]) 7 10:13:30 Date Recorded Body height Body mass index (BMI) Body weight Systolic blood pressure Diastolic blood pressure Provider Name and Address Organization Details Last Updated DateTime 08/12/2017 171.45 cm 33.6 kg/m2 63298.14 g 138 mm[Hg] 78 mm[Hg] Sharda Heena [facility] ([place], [place]) 7 09:17:16 Date Recorded Body height Body mass index (BMI) Body weight Body temperature Provider Name and Address Organization Details Last Updated DateTime 10/03/2017 171.45 cm 33.8 kg/m2 73851.41 g 97.4 [degF] Katya Peterson MA [facility] ([place], [place]) 10/03/2017 09:32:12 Date Recorded Systolic blood pressure Diastolic blood pressure Systolic blood pressure Diastolic blood pressure Provider Name and Address Organization Details Last Updated DateTime 10/03/2017 134 mm[Hg] 80 mm[Hg] 130 mm[Hg] 80 mm[Hg] Tushar Byrd MD [address] [place] [address], [id number] , [facility] ([place], [place]) 7 10:12:32 Social History Question Answer Notes LastModified by Organization Details LastModified Time Tobacco Smoking Status Former Smoker quit in his 30's (1989's) GREGORY Love [facility] ([place], [place]) 03/19/2011 11:12:14 Do You Have An Advance Directive? No Form Given 07/29/09 -regiven 07/19/12 Information not available 07/29/2009 What Is Your Level Of Alcohol Consumption? Occasional [email or web address] Information not available 12/21/2016 What Is Your Level Of Caffeine Consumption? Moderate 1-2 CUPS OF COFFEE DAILY-NO SODA Information not available 03/19/2011 How Much Tobacco Do You Chew? None Information not available 10/14/2011 What Type Of Diet Are You Following? REGULAR Information not available 10/14/2011 Which Illicit Or Recreational Drugs Have You Used? None Information not available 10/14/2011 Education Less Than 8th Grade Information not available 10/14/2011 What Is Your Occupation? Not Working Information not available 10/14/2011 Are There Any Guns Present In Your Home? No Information not available 10/14/2011 Live Alone Or With Others? With Others Information not available 10/14/2011 CSRP - Narcotics Yes Information not available 10/14/2011 CSRP Contract Signed And Discussed Yes 12/14/11 [place]- 5 [email or web address] Information not available 10/14/2011 Patient Has Health Care Proxy Signed And In Chart Yes [email or web address] Information not available 07/19/2012 DM Disease Process Post-needs More Instruction Information not available 04/03/2014 Nutrition Post-needs More Instruction Information not available 04/03/2014 Physical Activity Post-needs More Instruction Information not available 04/03/2014 Medications Post-needs More Instruction Information not available 04/03/2014 Monitoring Post-needs More Instruction Information not available 04/03/2014 Acute Complications Post-needs More Instruction Information not available 04/03/2014 Chronic Complications Post-needs More Instruction Information not available 04/03/2014 Coping Post-needs More Instruction Information not available 04/03/2014 Behavior Change Post-needs More Instruction Information not available 04/03/2014 DSME Plan Goal Healthy Eating: Establish Regular Eating Routine W/ Consistent Carbs Information not available 04/03/2014 DSME Plan Goal Success Initiated Information not available 04/03/2014 DSME Plan Goal Evaluation: 04/02/2014 Information not available 04/03/2014 DSME Plan Initiated: 04/02/2014 [email or web address] Information not available 04/03/2014 DSME Plan Status In Progress - Dates Seen: MNT: 04/02/14 Information not available 04/03/2014 CCM Consent Discussion 03/08/2016 Information not available 03/08/2016 Marital Status [email or web address] [id number] Information not available 10/14/2011 Mosquito Repellent Used Routinely Yes [email or web address] Information not available 10/14/2011 What Was The Date Of Your Most Recent Tobacco Screening? 10/03/2017 Information not available 06/20/2019 How Many Children Do You Have? 3 [email or web address] Information not available 10/14/2011 Seat Belts Used Routinely Yes [email or web address] Information not available 10/14/2011 Are You Sexually Active? Yes [email or web address] Information not available 10/14/2011 Smoke Alarm In Home Yes Information not available 10/14/2011 At What Age Did You Start Smoking Tobacco? 15 Information not available 10/14/2011 What Types Of Sporting Activities Do You Participate In? None [email or web address] Information not available 10/14/2011 General Stress Level Low Information not available 10/14/2011 Do You Use Sunscreen Routinely? Yes [email or web address] Information not available 10/14/2011 Sex: Unknown Functional Status None recorded. Mental Status None recorded. Family History Nothing Reported Notes:father- [place] mother- ariana abrams in [place]; Medical History Condition Response Diabetes Type II Y Hyperlipidemia Y Osteoarthritis Y NEUROLOGIC Y Chronic Back Pain Y Immunizations Vaccine Type Date Status Note Provider Nam e and Address Organization Details Recorded Time Influenza, split virus, trivalent, preservative 1 completed Not Available [facility] 12/15/2019 02:36:33 Influenza, split virus, trivalent, PF 2 completed Not Available [facility] 12/15/2019 02:31:06 Td(adult) unspecified formulation 6 completed Not Available [facility] 10/13/2011 05:22:52 Influenza, split virus, trivalent, PF 3 completed Not Available [facility] 12/15/2019 02:37:17 Influenza, split virus, trivalent, preservative 4 completed Not Available [facility] 12/15/2019 02:38:49 Influenza, split virus, quadrivalent, PF 5 completed Not Available [facility] 12/15/2019 02:19:52 Influenza, split virus, quadrivalent, PF 7 completed Not Available [facility] 12/15/2019 02:31:45 Tdap 7 completed Not Available [facility] 12/15/2019 02:21:41 Influenza, split virus, trivalent, preservative 0 completed Not Available [facility] 12/15/2019 02:17:47 pneumococcal polysaccharide PPV23 1 completed Not Available [facility] 12/15/2019 02:14:30 Past Encounters Encounter ID Performer Location Encounter Start Date Encounter Closed Date Diagnosis/Indication Diagnosis SNOMED-CT Code Diagnosis ICD10 Code Diagnosis Note [id number] [facility], [address] [place] [address] 03/31/2004 10:18:30 03/31/2004 14:37:57 [id number] LAB - [facility] [address] [place] [address] 03/31/2004 11:19:45 03/31/2004 11:20:36 [id number] [facility], [address] [place] [address] 04/30/2004 12:10:45 05/01/2004 08:39:52 [id number] [facility], [address] [place] [address] 05/12/2004 09:58:16 05/12/2004 11:59:15 [id number] [facility], [address] [place] [address] 05/26/2004 09:43:20 05/26/2004 12:18:46 [id number] FP, [facility], OFFICE [address] [place] [address] 06/02/2004 11:10:06 06/02/2004 14:32:25 [id number] FP, [facility], [address] [place] [address] 12/17/2004 14:11:44 12/17/2004 16:58:39 [id number] Radiology , [facility] [address] [place] [address] 12/17/2004 14:45:09 12/18/2004 09:03:30 [id number] Radiology , [facility] [address] [place] [address] 12/17/2004 00:00:00 12/18/2008 02:02:29 [id number] FP, [facility], [address] [place] [address] 12/23/2004 16:09:24 12/24/2004 08:38:56 [id number] FP, [facility], [address] [place] [address] 01/08/2005 14:52:21 01/08/2005 15:55:33 [id number] Radiology , [facility] [address] [place] [address] 03/15/2005 14:45:40 03/16/2005 09:17:27 [id number] Radiology , [facility] [address] [place] [address] 03/15/2005 00:00:00 12/18/2008 02:02:29 [id number] FP, [facility], [address] [place] [address] 03/15/2005 14:26:25 03/15/2005 16:19:02 [id number] FP, [facility], [address] [place] [address] 03/25/2005 11:02:59 03/25/2005 15:08:17 [id number] Radiology , [facility] [address] [place] [address] 03/25/2005 11:21:44 03/26/2005 08:38:01 [id number] Radiology , [facility] [address] [place] [address] 03/25/2005 00:00:00 12/18/2008 02:02:29 [id number] FP, [facility], [address] [place] [address] 06/01/2005 16:11:52 06/02/2005 08:44:19 [id number] [facility], OFFICE [address] [place]END[place] 6 04/28/2006 09:32:50 04/28/2006 11:20:56 [id number] Radiology , [facility] [address] [place] Cummins[address] 6 04/28/2006 10:45:25 04/29/2006 09:36:23 [id number] LAB - [facility] [address] [place] Cummins[address] 6 04/29/2006 07:55:27 04/29/2006 07:55:45 [id number] Physical Therapy, [facility] [place] Craven62[address] 6 05/09/2006 11:27:47 12/18/2008 02:02:29 [id number] Physical Therapy, ON LICENSE OF [facility] [place] Cummins[address] 6 05/12/2006 13:30:35 12/18/2008 02:02:29 [id number] Physical Therapy, [facility] G[place] Craven62[address] 6 05/17/2006 08:18:10 12/18/2008 02:02:29 [id number] Physical Therapy, [facility] [place] Craven62[address] 6 05/19/2006 09:42:08 05/20/2006 09:04:42 [id number] Physical Therapy, [place] [address] 05/23/2006 10:58:43 12/18/2008 02:02:29 [id number] Physical Therapy, [facility] [place] Craven62[address] 6 05/25/2006 07:27:58 12/18/2008 02:02:29 [id number] [facility], [address] [place] [address] 05/26/2006 10:51:49 12/18/2008 02:02:29 [id number] Physical Therapy, [place] [address] 05/27/2006 11:01:08 12/18/2008 02:02:29 [id number] Physical Therapy, [facility] G[place] Craven62[address] 6 06/03/2006 11:50:12 12/18/2008 02:02:29 [id number] Radiology , [place] [address] 04/28/2006 00:00:00 12/18/2008 02:02:29 [id number] Physical Therapy, [place] [address] 06/07/2006 12:58:31 12/18/2008 02:02:29 [id number] Physical Therapy, [facility] [address] [facility] [place] [address] 06/13/2006 12:00:36 12/18/2008 02:02:29 [id number] Physical Therapy, [facility] [place] [facility] [place] [address] 06/17/2006 12:56:28 12/18/2008 02:02:29 [id number] [facility], [facility] [address] [facility] [place] [address] 07/28/2006 09:21:20 07/28/2006 11:11:41 [id number] Optical, [facility] [place] [facility] [place] [address] 10/11/2006 10:22:16 10/11/2006 16:53:56 [id number] Eye Care, [facility] [place] [address] 10/11/2006 08:59:55 12/18/2008 02:02:29 [id number] [facility], OFFICE [address] [place] [address] 01/06/2007 09:16:54 01/06/2007 13:24:46 [id number] [facility], OFFICE [address] [place] [address] 01/09/2007 09:32:35 01/09/2007 13:14:56 [id number] LAB - [facility] [address] [place] [address] 04/19/2007 08:10:17 04/19/2007 08:10:21 [id number] [facility], OFFICE [address] [place] [address] 05/26/2007 08:27:30 05/26/2007 10:20:43 [id number] [facility], [address] [place] [address] 05/29/2007 11:40:45 05/29/2007 15:23:55 [id number] [facility], [address] [place] [address] 06/01/2007 15:12:26 06/02/2007 08:38:31 [id number] [facility], [address] [place] [address] 08/01/2007 10:19:48 08/07/2007 09:46:02 [id number] [facility], [address] [place] [address] 01/25/2008 15:58:37 12/18/2008 02:02:29 [id number] [facility], [address] [place] [address] 01/29/2008 09:51:09 12/18/2008 02:02:29 [id number] LAB - [facility] [address] [place] [address] 01/30/2008 08:33:13 01/30/2008 08:33:17 [id number] [facility], OFFICE [address] [place] [address] 02/06/2008 09:55:47 12/18/2008 02:02:29 [id number] Radiology , [facility] [address] [place] [address] 02/14/2008 10:18:11 02/15/2008 09:21:32 [id number] [facility], OFFICE [address] [place] [address] 02/14/2008 09:39:56 12/18/2008 02:02:29 [id number] Physical [facility] [place], [facility] [address] [facility] [place] [address] 02/19/2008 11:15:58 02/19/2008 17:04:46 [id number] LAB - [facility] [address] [place] [address] 04/30/2008 07:47:56 04/30/2008 07:48:05 [id number] [facility], OFF[address] [place] [address] 06/17/2008 11:20:30 12/18/2008 02:02:29 [id number] LAB - [facility] [address] [place] [address] 09/04/2008 07:10:21 09/04/2008 07:10:28 [id number] [facility], [address] [place] [address] 09/20/2008 09:24:38 12/18/2008 02:02:29 [id number] Optical, [facility] [address] [place] [address] 10/14/2008 09:58:54 10/14/2008 16:40:17 [id number] Eye Care, [facility] [address] [place] [address] 10/14/2008 08:56:42 10/14/2008 12:00:56 [id number] Eye Care, [facility] [address] [place] [address] 10/14/2008 00:00:00 12/18/2008 02:02:29 [id number] , [facility], [address] [place] [address] 02/14/2009 09:13:26 02/20/2009 12:37:40 [id number] [facility], OFFICE [address] [place] [address] 02/17/2009 11:26:42 02/19/2009 11:10:33 [id number] [facility], OFFICE [address] [place] [address] 02/21/2009 11:46:59 02/24/2009 15:25:29 [id number] , [facility], [address] [place] [address] 02/25/2009 09:49:33 02/27/2009 11:03:33 [id number] , [facility], [address] [place] [address] 02/28/2009 10:25:08 03/05/2009 09:33:07 [id number] , [facility], OFF[address] [place] [address] 06/26/2009 10:17:00 07/02/2009 14:43:45 [id number] , [facility], [address] [place] [address] 06/27/2009 09:34:03 07/03/2009 13:25:41 [id number] , [facility], [address] [place] [address] 07/14/2009 10:20:34 07/16/2009 15:01:27 [id number] Tara small [place] , [facility], [address] [place] [address] 07/29/2009 16:40:39 08/01/2009 11:47:00 [id number] LAB - [facility] [address] [place] [address] 01/15/2009 08:51:18 01/15/2009 08:51:22 [id number] LAB - [facility] [address] [place] [address] 02/28/2009 11:16:45 02/28/2009 11:16:53 [id number] LAB - [address] [place] [address] 06/26/2009 14:01:41 06/26/2009 14:01:47 [id number] [facility], OFFICE [address] [place] [address] 07/29/2009 00:00:00 09/25/2009 02:00:52 [id number] LAB - [facility] [address] 08/05/2009 07:42:17 08/05/2009 07:42:31 [id number] [facility], OFFICE [address] [place] [address] 09/27/2009 09:27:38 09/30/2009 15:31:58 [id number] [facility], OFFICE [address] [place] [address] 10/03/2009 08:14:08 10/06/2009 14:02:12 [id number] [facility] , [facility] [address] [facility] [place] [address] 6 10/03/2009 08:37:09 10/06/2009 14:30:16 [id number] Tushar Byrd MD [facility], OFFICE [address] [place] [address] 01/23/2010 08:51:23 01/26/2010 11:56:16 [id number] [facility], OFFICE [address] [place] [address] 04/06/2010 09:00:40 04/08/2010 09:13:59 [id number] [facility], OFFICE [address] [place] [address] 08/13/2010 11:01:52 08/13/2010 14:44:20 [id number] [facility], OFFICE [address] [place] [address] 09/07/2010 08:18:05 09/09/2010 09:17:40 [id number] FP, [place], [address] [place] [address] 10/09/2010 10:28:02 10/09/2010 14:41:59 [id number] FP, [place], OFFICE [address] [place] [address] 12/01/2010 09:00:42 12/01/2010 13:35:24 [id number] FP, [place], [address] [place] [address] 01/21/2011 11:23:21 01/21/2011 14:13:57 [id number] FP, [place], [address] [place] [address] 03/19/2011 10:09:10 03/23/2011 14:20:09 [id number] FP, [facility], [address] [place] [address] 06/18/2011 09:43:09 06/18/2011 12:13:22 [id number] [facility] [address] [place] [address] 07/20/2011 09:16:40 07/20/2011 10:14:35 [id number] FP, [facility], [address] [place] [address] 6 09/15/2011 09:50:18 09/15/2011 10:26:20 [id number] FP, [facility], [address] [place] [address] 10/13/2011 09:25:01 10/15/2011 07:39:30 [id number] FP, [place], [address] [place] [address] 01/12/2012 09:33:03 01/17/2012 10:44:04 [id number] FP, [facility], [address] [place] [address] 6 04/26/2012 10:27:44 04/26/2012 10:56:16 [id number] Tara small MA FP, [place], [address] [place] [address] 6 07/19/2012 11:04:42 07/19/2012 11:49:32 [id number] Tushar Byrd MD FP, [place], [address] [place] [address] 6 12/22/2012 09:28:01 12/22/2012 10:05:38 [id number] Rubi Munguia , [facility], [address] [place] [address] 6 01/19/2013 10:08:53 01/19/2013 12:40:24 [id number] Dinesh Ayers MD , [facility], [address] [place] [address] 02/27/2013 14:49:49 02/27/2013 15:28:21 [id number] Lissa Betts , [facility], [address] [place] [address] 03/13/2013 09:20:17 03/13/2013 12:58:07 [id number] Lissa Betts , [facility], [address] [place] [address] 03/23/2013 10:54:42 03/26/2013 13:07:09 [id number] Lissa Betts [facility], [address] [place] [address] 6 04/02/2013 11:11:12 04/02/2013 13:54:07 [id number] Madison Padilla, PT Physical Therapy, [facility] [address] [facility] [address] 04/04/2013 08:41:36 04/05/2013 07:58:38 [id number] Madison Padilla PT Physical Therapy, [facility] [address] [facility] [place] [address] 04/09/2013 10:58:16 04/10/2013 09:14:59 [id number] Madison Padilla PT Physical Therapy, [facility] [address] [facility] [address] 04/12/2013 09:01:47 04/12/2013 10:48:41 [id number] Madison Padilla PT Physical Therapy, [facility] [address] [facility] [address] 04/16/2013 08:59:33 04/16/2013 10:16:26 [id number] Madison Padilla PT Physical Therapy, [facility] [address] [facility] [address] 04/18/2013 12:57:53 04/18/2013 14:24:31 [id number] Tushar Byrd MD , [facility], [address] [place] [address] 6 06/26/2013 10:15:48 06/26/2013 10:59:01 [id number] Tushar Byrd MD , [facility], [address] [place] [address] 08/24/2013 10:17:23 08/28/2013 12:41:21 Pain in wrist [id number] [facility] [id number] , [facility], [address] [place] [address] 08/27/2013 11:44:42 08/30/2013 12:04:39 Influenza vaccine needed [id number] 106 Gout 18592536 proable gout. finish course of medication [id number] Deanna Bustamante , [facility], [address] [place] [address] 10/29/2013 09:17:21 10/29/2013 10:11:07 Psoriasis with arthropathy 73546163 see rheumatogi Type 2 leighton betes mellitus without complication 290072234 may be worse- got Hb a1c today. told not to eat candy Chronic pain 96683780 ba ck and arthirtis pain not controlled - maybe adding back nsaid will help- told to take meds regularly Essential hypertension 56102579 at GOAL of 135/80- plan-same med [id number] Heather Hsu , [facility], [address] [place] [address] 02/25/2014 14:50:17 02/25/2014 16:03:00 Chronic pain 82689690 back and arthirtis pain not controlled - maybe adding back nsaid will help- told to take meds regularly Psoriasis with arthropathy 12718167 see rheumatogrust Type 2 leighton betes mellitus without complication 480733635 not controlled not at goal plan send to [facility]. needs to lose weight. if not controlled , will start metformin Benign ess ential hypertension 0878885 at goal same med [id number] Nutrition -[facility] [address] [place] [address] 04/02/2014 07:45:48 04/05/2014 15:28:32 Type 2 diabetes mellitus without complication 460851161 [id number] Kaity BAEZ, [facility], [address] [place] [address] 6 05/21/2014 10:50:12 05/22/2014 09:19:04 Right lower quadrant pain 817146335 Patient presents to Urgent Care with acute-onse t RLQ abdominal pain started 2 hours ago. Pain over the McBurney's point. Also with N/V. Denies fever. Will refer to [facility] ER for further evaluation and to rule out appendicit is. No history of abdominal surgeries. Will contract the ER to coordinate the care. [id number] GREGORY Dias, [facility], [address] [place] [address] 05/27/2014 10:04:08 05/27/2014 10:31:28 Chronic pain 52849595 back and arthirtis pain not controlled - maybe adding back nsaid will help- told to take meds regularly Calculus o f kidney and ureter 014382354 looks like he passed the sotne- plan - engourage fluids, low salt diet, low meat diet. Psoriasis with arthropathy 57315205 Benign ess ential hypertension 3117079 at goal same med Mixed hyperlipidemia 332411971 Type 2 leighton betes mellitus 94653341 diet controlled [id number] GREGORY Dias, [facility], [address] [place] [address] 08/26/2014 09:22:03 08/26/2014 15:15:01 Chronic pain 99791236 back and arthirtis pain not controlled - maybe adding back nsaid will help- told to take meds regularly Psoriasis with arthropathy 48175636 still with pain- told to take the nabumetone Benign ess ential hypertension 3760694 at goal controlled with diet Mixed hyperlipidemia 437334466 on pravastati n Type 2 leighton betes mellitus 01794055 diet controlled Influenza vaccine needed [id number] 027 [id number] Lissa BAEZ, [facility], [address] [place] [address] 12/02/2014 08:12:17 12/02/2014 08:52:43 Chronic pain 82613523 back and arthirtis pain not controlled - maybe adding back nsaid will help- told to take meds regularly Essential hypertension 30415736 at GOAL of 135/80- plan-same med Type 2 leighton betes mellitus without complication 153188125 at goal diet controlled Mixed hyperlipidemia 621587639 on pravastati n will increase to 80 as ldl was 150 Shoulder joint pain 352584222 impingemen t try nsaid. if nt better, ret for cortisone injection or PT [id number] Diana Rodriguez , [facility], [address] [place] [address] 03/03/2015 08:14:53 03/03/2015 08:45:24 Psoriasis with arthropathy 52697838 still with pain- needs to go back to rheumaolog ist Benign ess ential hypertension 9174297 at goal controlled with diet Type 2 leighton betes mellitus 20288112 slightly better Hb1c= I hesistate to raise the metformin due to morning diarrhea. r/o other s/e from metformin sc as B12 diff- says some tingling in feet. urge good diet [id number] , [facility], [address] [place] [address] 06/16/2015 08:09:54 06/16/2015 09:08:39 Chronic pain 43260694 back and arthirtis pain not controlled - maybe adding back nsaid will help- told to take meds regularly Type 2 leighton betes mellitus without complication 113590938 at goal diet controlled Psoriasis with arthropathy 48059539 still with pain- needs to go back to rheumatolo gist- doesn't want to go toDr. Carmen Screening for disorder 508350515 Chronic hoarseness 65770 49703 005 [id number] Prema Holliday , [facility], [address] [place] [address] 07/21/2015 14:45:54 07/21/2015 16:10:38 Impacted cerumen 37211478 irrigation done- Benign ess ential hypertension 9808883 at goal controlled with diet Type 2 leighton betes mellitus without complication 933509307 at goal diet controlled Chest pain 88448909 stre ss vs angina [id number] Tushar Byrd MD , [facility], [address] [place] [address] 09/16/2015 08:13:03 09/16/2015 08:59:38 Chronic pain 71592455 R52 back and arthirtis pain not controlled - same Type 2 leighton betes mellitus without complication 374684631 E11.9 at goal diet controlled Benign ess ential hypertension 0249975 I10 at goal controlled with diet Psoriasis with arthropathy 71517239 L40.50 still with pain- needs to go back to rheumatolo gist- Active or passive immunization 013547806 Z23 [id number] Tushar Byrd MD , [facility], [address] [place] [address] 12/15/2015 10:47:38 12/15/2015 11:23:33 Type 2 diabetes mellitus without complication 347129405 E11.9 at goal diet controlled Benign ess ential hypertension 9579404 I10 at goal controlled with diet Psoriasis with arthropathy 67265562 L40.50 still with pain- needs to go back to rheumatolo gist- Chronic pain 04591848 R5 2 back and arthirtis pain not controlled - same Calculus o f kidney and ureter 096298196 N20.2 encourage fluids, strain urine, call if nto better or go to ER [id number] Jeri Jc, OD [facility], [facility] [address] [place] [address] 01/08/2016 11:00:44 01/08/2016 12:22:35 Type 2 diabetes mellitus without complication 817439365 E11.[address] OU, monitor 1 yr Corneal scar 12860732 H1 7.829 small scars OU. s/p FB removal OD 08/2014. monitor 1 yr Hypermetropia 40840996 H 52.03 glasses rx given, no changes made. [id number] Marialuisa Hilton , [facility], [address] [place] [address] 03/08/2016 09:20:22 03/10/2016 11:15:19 Chronic pain 69260727 R52 back and arthirtis pain not controlled - same Chronic hepatitis C 1283 08320 B18.2 low viral load Benign ess ential hypertension 3307031 I10 at goal controlled with diet Type 2 leighton betes mellitus without complication 779371085 E11.9 controlled same med Psoriasis with arthropathy 65381918 L40.50 still with pain- needs to go back to rheumatolo gist- [id number] Yenni Andre Podiatry, [facility] [address] [place] [address] 05/17/2016 09:51:44 05/17/2016 10:55:50 Onychomycosis 731825172 B35.1 Manual and mechanical debridemen t of toenails to viable nail beds with trimming of hyperkerat otic lesions performed. Reviewed proper diabetic foot care. To apply vicks to toenails daily. RTC 9 wks. Cellulitis and abscess of toe 074240305 L02.611 right great toe abscess and cellulitis .-Informed consent obtained. Right hallux block was performed. Foot prepped and drapped in the usual aseptic manner. Involved lateral nail border removed, small abscess was encountere d. Diluted betadine was used to copiously irrigate the right great toe lateral nail border. Site was dressed with bacitracin and dsd and compressio n dressing. Pt given instructio ns and handout for at home care. RTC 1 wk.-rx for clindamyci n for 1 wk and to take current pain meds prn pain. Diabetic p eripheral neuropathy 361961154 E11.40 Risk assessment completed. To check feet daily. Emphasized importance of proper glycemic control. Pt with c/o lightheadn ess in setting of non compliance with diabetic care so finger stick was obtained. Reading of 158mg/dl today. [id number] Saira Garibay DPM Podiatry, [facility] [address] [place] [address] 05/24/2016 08:51:04 05/24/2016 09:10:38 Cellulitis and abscess of toe 971491097 L02.611 right great toe cellulitis improving. -Pt instructed to complete his abx and take as directed. Ok to dc foot soaks as no drainage from toe.-RTC for routine foot care appointmen t in 8 weeks. Pt seen face to face for 15 mins with greater 50% of time spent counseling and coordinati on of care. [id number] Tushar Byrd MD , [facility], [address] [place] [address] 07/14/2016 08:08:43 07/14/2016 08:48:10 Benign essential hypertension 5070297 I10 BP normal off medcontinu e to work on diet, exercise, and lowering salt intake as discussed Type 2 leighton betes mellitus without complication 176363821 E11.9 not controlled - not compliant with med Chronic pain 09596154 R5 2 back and arthirtis pain not controlled - same Chronic hoarseness 47071 47254 105 R49.0 secondary to gerd and polypoid growhts on vocal cords- stay on omeprazole [id number] Saira Garibay DPM Podiatry, [address] [address] 07/19/2016 08:39:33 07/19/2016 09:03:02 Diabetic peripheral neuropathy 850950652 E11.40 Risk assessment completed. To check feet daily. Emphasized importance of proper glycemic control. Rx for diabetic shoes sent to [facility] in [facility]. Onychomycosis 808845326 B35.1 Manual and mechanical debridemen t of toenails x4 to viable nail beds, with trimming of the remainder toenails performed. Reviewed proper diabetic foot care. To apply vicks to toenails daily. RTC 9 wks. [id number] Dav Bai OD Eye [facility], [facility] [address] [place] [address] 08/27/2016 09:18:25 08/27/2016 10:15:33 Corneal abrasion 53680899 S05.01XA <1mm healing abrasion secondary to FB [id number] Saira Garibay DPM Podiatry, [facility] [address] [place] [address] 09/20/2016 08:48:55 09/20/2016 09:37:54 Diabetic peripheral neuropathy 485486900 E11.40 Risk assessment completed. To check feet daily. Emphasized importance of proper glycemic control. Rx for diabetic shoes sent to [facility] in [facility], pt stating he will go by today. Onychomycosis 096173853 B35.1 Manual and mechanical debridemen t of toenails x4 to viable nail beds, with trimming of the remainder toenails performed. Reviewed proper diabetic foot care. To apply vicks to toenails daily. RTC 9 wks. Pain in toe 542421397 M7 9.629 [id number] Tushar Byrd MD , [facility], [address] [place] [address] 09/22/2016 09:00:30 09/22/2016 10:11:01 Benign essential hypertension 7791856 I10 at goal controlled with diet Psoriasis with arthropathy 03647966 L40.50 still with pain- needs to go to rheumatolo gist- Type 2 leighton betes mellitus without complication 132937954 E11.9 not controlled - not at goal of a1c <7 increase metformin to 500mg bid from qd given form to get glucose meter Chronic hoarseness 75723 17980 105 R49.0 secondary to gerd and polypoid growhts on vocal cords- stay on omeprazole - eventually to have surgery Low back pain 549642128 M54.5 [id number] Saira Garibay DPM Podiatry, [facility] [address] [place] [address] 12/14/2016 08:43:18 12/14/2016 09:30:38 Diabetic peripheral neuropathy 548049850 E11.40 Risk assessment completed. To check feet daily. Emphasized importance of proper glycemic control. Onychomycosis 397817668 B35.1 Manual and mechanical debridemen t of toenails x4 to viable nail beds, with trimming of the remainder toenails performed. Reviewed proper diabetic foot care. To apply vicks to toenails daily. RTC 9 wks. Pain in toe 366556169 M7 9.674 M79.035 [id number] Tushar Byrd MD , [facility], [address] [place] [address] 12/21/2016 08:28:39 12/21/2016 08:51:57 Benign essential hypertension 7803755 I10 at goal controlled with diet- same med Chronic hepatitis C 1283 00335 B18.2 low viral load Chronic hoarseness 39766 91963 105 R49.0 secondary to gerd and polypoid growths on vocal cords- stay on omeprazole - needs to go back to ENT Mixed hyperlipidemia 267 976253 E78.2 not at goal missing doses Type 2 leighton betes mellitus without complication 253475109 E11.9 not controlled - not at goal of a1c <7 missing doses metformin 500mg bid from qd given form Psoriasis with arthropathy 61339222 L40.50 to go to rheumatolo [facility] this afternoon Chronic pain 16985521 R5 2 back and arthirtis pain not controlled - same med [id number] Randy Pereira MD PhD Rheumatol [facility], [address] [address] 12/21/2016 12:25:49 12/21/2016 13:23:22 Multiple joint pain 74724561 M25.50 Not clear the diagnosis of the multiple joint pain. DDx: degenerati ve arthritis, RA, psoriatic arthritis and fibromyalg ia. The shoulder pain and limited motion is likely related to rotator cuff tendinopat hy. 1). labs including serology studies; 2). X-rays to detect the abnormalit ies; 3). hold the treatment at this moment and follow up in one month. will contact the patient for the results. Psoriasis 4975458 L40.9 mild psoriasis on his bilateral knee, he never received treatment. hold the treatment at this moment and follow up. Viral hepatitis C 199894 07 B19.20 He had one test of hep C antibody positive but the most recent test was negative. He mentioned that his had test positie for Hep C. I will repeat the test. follow up. [id number] Randy Pereira MD PhD Rheumatol [facility], [address] [address] 01/25/2017 13:31:52 01/25/2017 16:13:41 Degenerative joint disease involving multiple joints 521686638 M15.9 Unlikely he has inflammato ry arthritis but osteoarthr itis. 1). Start meloxicam, side effect explained in instructio n was given, 2). Try to wean off Percocet, 3). Physical therapy and encourage exercise, instructio ns was given, recommend jamarcus chi program; 4). Follow-up in 4 months Fibromyalgia 228758048 M 79.7 He also has general pain with fatigue and poor sleep which may be related to fibromyalg ia. Plan to wean off Percocet when the pain is better controlled by NSAIDs for osteoarthr itis and gabapentin for fibromyalg ia. Since he has poor sleep, need to rule out sleep apnea. But he declined sleep study. 1). Started gabapentin 100 mg at bedtime and titrate up to 300 mg 3 times a day. Side effects were explained and instructio ns was given. 2). Start physical therapy, recommende d jamarcus chi program and a yoga program, Encourage exercise, Declined therapy; 3). Follow-up in 4 month. Hepatitis C antibody detected 101225867 Z86.19 He had one episode of test positive for hepatitis C antibody, repeated a complement danielle PCR test showed negative for hepatitis C viral load. Will follow up. [id number] Madison Padilla, PT Physical Therapy, [address] [address] 01/27/2017 09:37:05 01/28/2017 13:10:51 Low back pain 579187660 M54.5 [id number] Madison Padilla, PT Physical Therapy, [address] [address] 02/01/2017 10:28:42 02/01/2017 11:31:46 Low back pain 474891386 M54.5 [id number] LELE Lynn-KIRT , [facility], [address] [place] [address] 03/14/2017 16:48:43 03/14/2017 17:10:58 Gout 67220924 M10.9 symptoms consistent with previous flare,onse t after consuming hotdogs.up date for failure to improve with rx as written below. [id number] Merly Wright , [facility], [address] [place] [address] 03/19/2017 14:39:19 03/19/2017 15:21:04 Gout 31342368 M10.9 Will start with prednisone given pain, stiffness, etc. Could consider colchicine if recurrent dizziness. Plan as below. [id number] Tushar Byrd MD , [facility], [address] [place] [address] 03/24/2017 09:56:49 03/24/2017 10:29:24 Chronic hoarseness 5381474553 105 R49.0 secondary to gerd and polypoid growths on vocal cords- stay on omeprazole - needs to go back to ENT to arrange surger Idiopathic peripheral neuropathy 10977875 G60.9 had neg vit b12 Gout 56855546 M10.9 has had three attacks in life time. wants to go on preventiti ve med. start allopurina l now- still on prednisone for the acute attack. follow this with colchicine for 3-6 months Gastroesop hageal reflux disease 236894035 K21.0 Chest pain 37502828 R07. 89 secondary to gerd which indocin exacerbate d Sleep apnea 62324744 G47 .30 not to stop breathing in his sleep while [facility] [id number] Tushar Byrd MD FP, [facility], [address] [place] [address] 07/04/2017 09:59:31 07/04/2017 10:36:36 Mixed hyperlipidemia 717522957 E78.2 on statin Chronic hoarseness 90802 83275 105 R49.0 secondary to gerd and polypoid growths on vocal cords needs to have insurance. I spoke to our support specialist , Farhana. She will look into getting him Medicaid. Psoriasis with arthropathy 12252431 L40.50 will need a new rheumologi st after Dr. Pereira leaves. Stay on nabumatone . is on allopurina l- not sure if has gut too. put on by rheum. go up to 200mg qd becasue last uric acid was 6.5. goal is <6. Type 2 leighton betes mellitus without complication 064092411 E11.9 not controlled - not at goal of a1c <7 missing doses go up on the metformin to 500mg bid from qd [id number] ULISES Jay, [facility], [address] [place] [address] 08/12/2017 09:09:26 08/12/2017 13:58:07 Preoperative cardiovascular examination 731351133 Z01.810 Polyp of vocal cord 9078 005 J38.1 Active or passive immunization 364668825 Z23 [id number] Jeri Jc, [facility], [facility] [address] [place] [address] 08/23/2017 08:45:51 08/23/2017 09:53:07 Corneal abrasion 80992233 S05.01XA Corneal foreign body 374 57965 T15.01XA <1mm FB OD, removed with residual abrasion. RTC within 1 month for CEE or sooner with increased pain, redness, or loss of vision. Dry eyes 001402821 H04.1 29 recommend Systane AT 2-4 x day OU, wait at least 10 minutes between AB gtt and AT. [id number] Jeri Jc, [facility], [facility] [address] [place] [address] 09/20/2017 08:57:29 09/20/2017 10:15:59 Type 2 diabetes mellitus without complication 899441594 E11.9 No diabetic retinopath y OU. pt ed on importance of good blood sugar control, monitor 1 yr with CEE Presbyopia 91658850 H52. 4 ok to cont with +3.00 OTC readers Corneal sc ars and opacities 931603866 H17.813 not visually significan t. encouraged pt to wear safety glasses when appropriat e [id number] Tushar Byrd MD , [facility], [address] [place] [address] 10/03/2017 09:22:03 10/03/2017 09:50:56 Chronic pain 56153113 R52 fair control- same med Opioid dependence 821960 00 F11.20 Benign ess ential hypertension 6585202 I10 at goal controlled with diet- same med Chronic hoarseness 98210 33922 105 R49.0 secondary to gerd and polypoid growths on vocal cord resolved with surgery Gout 16576808 M10.9 on allopurino l no attacks Type 2 leighton betes mellitus without complication 932705347 E11.9 not at goal- increase metfomrin to 500mg bid [id number] Coty Odom RN Endoscopy , [address] [address] 11/14/2024 08:00:57 11/14/2024 10:41:51 Health Concerns Section Related Observation LastModified by Organization Detai ls LastModified Time None Recorded Concern Status LastModified by Organization Details LastModified Time None Recorded Advance Directives Directive N: form given 07/29/09 -r egiven 07/19/12 Payers Encounter Date Sequence Insurance Name Policy Number Policy Burton Covered Member ID Burton Member ID Guarantor Name 07/04/2017 1 [place] [employer] Thaddeus Jimenezkey [id number] Thaddeus Pacheco 08/12/2017 1 [place] [employer] Thaddeus Jimenezkey [id number] Thaddeus Pacheco 08/12/2017 2 [place] [facility] Thaddeus Jimenezkey [id number] Thaddeus Pacheco 08/23/2017 1 [place] [employer] Thaddeus Tim Tara [id number] Thaddeus Jimenezkey 08/23/2017 2 [place] [facility] Thaddeus Jimenezkey [id number] Thaddeus Pacheco 09/20/2017 1 [place] B[place] [facility] Thaddeus Pacheco [id number] Thaddeus Pacheco 09/20/2017 2 [place] [facility] Thaddeus Pacheco [id number] Thaddeus Pacheco 10/03/2017 1 [place] [facility] Thaddeus Pacheco [id number] Thaddeus Pacheco 10/03/2017 2 [place] [facility] Thaddeus Pacheco [id number] Thaddeus Pacheco Notes Date Note Type Note Provider Name and Address Organization Details Recorded Time 7 text/htm l [facility] DiabetesReported bypatient.Duration:chronic Control:worsened since last visit; Hemoglobin A1C has been 7-8; Hemoglobin A1C goal is less than 7 Compliance:compliant with medications;noncompliant with diet;noncompliant with exercise;noncompliant with home glucose monitoring Self Care:monitoring glucose infrequently Ability to Manage Self CareOn how confident the patient feels in ability to self manage condition the patient selects 6 with 10 being very confident and 1 being very low confidenceVMG HyperlipidemiaReported bypatient.Notes:on statin voice is extremely hoarse from vocal cord nodules. Isn't able to afford surgery. Only has medicare. Applied to [employer] many month ago and never heard back from them. Is very upset about not being able to talk well. no gout attacks on allopurinal 100mg qd. Shari sternumetone for psoriatic arthritis Tushar Byrd MD [address] [place] [address], [phone], [facility] 07/04/2017 13:26:59 7 text/htm l Here for preop cardiovascular evaluation prior to upcoming throat surgery with Dr. Nunez at [facility]. Surgery is to be done on 08/17. Same day surgery.. He has large nodules on his vocal cords and chronic hoarseness. Pt has hx HTN, type 2 diabetes, GERD, BPH, fibromyalgia, DJD. Jeanne Jeffery NP [address] [place] [address], [phone], [facility] 08/13/2017 08:23:18 7 text/htm l Foreign Body SensationReported bypatient.Location:both eyes Quality:tearing;irritation ;pain Duration:1 weeks; intermittent Context:working on a truck and thinks a piece of rust fell into both eyes Associated Symptoms:tearing;pain;irri tation;light sensitivity Jeri Jc, OD [address] [place], [phone], [facility] 08/23/2017 10:05:59 7 text/htm l Diabetic Eye ExamReported bypatient.Quality:type II diabetes Severity:not requiring insulin Onset/Timin month exam Context:no history of retinopathy; A1C: 7.2 06/22/17 Associated Symptoms:normal vision Jeri Jc, OD [address] [place], [phone], [facility] 09/20/2017 10:13:40 7 text/htm l VMG DiabetesReported bypatient.Duration:chronic Control:worsened since last visit; Hemoglobin A1C has been 7-8; Hemoglobin A1C goal is less than 7 Compliance:compliant with medications;noncompliant with diet;noncompliant with exercise;noncompliant with home glucose monitoring Self Care:monitoring glucose infrequently Ability to Manage Self CareOn how confident the patient feels in ability to self manage condition the patient selects 6 with 10 being very confident and 1 being very low confidenceVMG HyperlipidemiaReported bypatient.Notes:on statinaVMG-Chronic Pain 2Reported bypatient.Duration:Pain is stable condition Context:Pain is due to degenerative joint disease; Patient has chronic low back pain Barriers to CareNo identified barriers to care Location of PainBack pain; Knee pain Pain assesment in last week 0 is no pain and 10 is pain as bad as it can bePain level on average in the last week 5 had vocal cord nodules no gout attacks on allopurinal 100mg qd. Shari sternumedevan for psoriatic arthritis Tushar Byrd MD [address] [place] [address], [phone], [facility] 10/03/2017 10:14:22
--- OUTSIDE RECORDS SUMMARY | 2025-01-17 10:12 | XMS_ITS | Encounter Summary ---
Author Organization [employer] Address [address] [facility] 7t [place] [address] Care Team Providers Care Indoor Sports Centre Manager Name Role Phone Lb Stevens NP Primary Care Provider + [phone] Reason for Visit * Reason Onset Date Comments Med Refill 12/24/2024 Encounter Details Date Type Department Care Team (Late st Contact Info) Description 12/24/2024 Refill [facility] MED[facility] [address] [place] [address] Lb Stevens NP [address] [place], [place] [phone] Primary osteoarthritis involving multiple joints (Primary Dx) Social History Tobacco Use Types Packs/Day Years [...] PM EST documented as of this encounter Miscellaneous Notes * Telephone Encounter - MAYELIN Solomon - 12/24/2024 9:57 AM EST *ACTION OXYCODONE 5MG* Masspat Last fill Date: 11/26/24 Masspat sold Date: 11/26/24 Last OV: 09/25/24 Telehealth JL Next OV: 12/27/24 JL Last UTOX: DUe CSA Date: DUE DNF Date: DUE documented in this encounter Plan of Treatment Upcoming Encounters Date Type Department Care Team (Late st Contact Info) Description 04/30/2025 9:00 AM EDT Office Visit [facility] MEDICAL [address] [place] [address] Lb Stevens NP [address] [place] [address] documented as of this encounter Visit Diagnoses Diagnosis Primary osteoarthritis involving multiple joints- Primary documented in this encounter Care Teams Indoor Sports Centre Manager Relationship Specialty Start Date End Date Lb Stevens NP [address] [place] [address] PCP - General Internal Medicine 10/28/22 documented as of this encounter
--- OUTSIDE RECORDS SUMMARY | 2025-01-17 10:12 | XMS_ITS | Encounter Summary ---
Author Organization [employer] Address 75 [facility] 7t [place] [address] Care Team Providers Care Sales And Marketing Agent Name Role Phone Lb Stevens NP Primary Care Provider [phone] Encounter Details Date Type Department Care Team (Late st Contact Info) Description 01/01/2025 9:00 AM EST Office Visit [facility] MEDICAL [address] [place] [address] Lb Stevens NP [address] [place] [address] Type 2 diabetes mellitus without complication, without long-term current use of insulin ([facility]) (Primary Dx); Essential hypertension; Hyperlipidemia, unspecified hyperlipidemia type; Elevated PSA; Nocturia; Cervicalgia; Primary osteoarthritis involving multiple joints; Vitamin D deficiency; Idiopathic chronic gout 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; Adenomatous polyp of colon, unspecified part of colon; Healthcare maintenance Social History Tobacco Use Types Packs/Day Years [...] PM EST documented as of this encounter Last Filed Vital Signs Vital Sign Reading Time Taken Comments Blood Pressure 132/83 01/01/2025 9:04 AM EST Pulse 79 01/01/2025 9:04 AM EST Temperature 37.1 ??C (98.7 ??F) 01/01/2025 9:04 AM ES T Respiratory Rate - - Oxygen Saturation 96% 01/01/2025 9:04 AM EST Inhaled Oxygen Concentration - - Weight 89.5 kg (197 lb 6.4 oz) 01/01/2025 9:04 A M EST Height 170.2 cm (5' 7 ) 01/01/2025 9:04 AM EST Body Mass Index 30.92 01/01/2025 9:04 AM EST documented in this encounter Progress Notes * Lb Stevens NP - 01/01/2025 9:00 AM EST 01/01/25 Thaddeus Pacheco [id number] HPI: Thaddeus Pacheco is a 64 y.o. male Hx of numbness in left arm, LEFT thumb and 2nd/3rd finger; mild numbness in right arm. Xray of c-spine with deg changes; MRI with moderate deg changes Taking oxycodone for pain, Bupronorphine patch not approved by insurance Also rxed meloxicam, apap, and cyclobenzaprine. Saw Dr Mccarty at [facility] in past. Referred to [facility] but not yet seen Chronic back pain with deg changes Chroinc b/l hip pain with deg arthritis, saw ortho, declined joint replacement. Recent left hip injection with orthopedics 10/2024 with moderate relief Additional ortho issues: Chronic left ankle pain Left knee replacement 06/08/22 OA of shoulders, knees Right knee with meniscal tear Hx of Lyme arthritis of Right knee. Hx of nocturia, hesitency Rxed tamsulosin , now less nocturia but still 2x/night. Still hesitency. PSA mildly elevated at 4.11 Due today for BOBBI and repeat PSA T2DM, Rxed metformin Labs 06/2024 - A1C 6.8, then increased to 7.1 on 08/2024 Poor diet last visit, drinking soda. Diet has improved a bit. HTN Hx of hyperkalemia on ACEI. Rxed amlodipine. Lipids Rxed atorvastatin 40 mg LDL suboptimal at 111 on 08/2024 , poor diet. Additional Hx of Vit D and B12 deficiency Now with slightly low Vit D, normal B12 Given vit D supplement, recheck 12/2024 approx. Hx of gout, Rxed allopurinol Uric acid 4.6 (wnl), 05/2024. [facility] derm on face and scalp, Rxed ketoconazole but did not get it from pharmacy. RHM [id number] with adenomatous polyps, plan to repeat 2028 Due for Prevnar, flu, covid, declines. Patient Active Problem List Diagnosis Date Noted Chronic gout of multiple sites 10/14/2022 Essential hypertension 10/14/2022 Hyperlipidemia 10/14/2022 Type 2 diabetes mellitus without complication, without long-term current use of insulin ([facility]) 10/14/2022 Peripheral polyneuropathy 10/14/2022 Esophageal polyp 10/14/2022 Gastroesophageal reflux disease without esophagitis 10/14/2022 Primary insomnia 10/14/2022 Psoriasis 10/14/2022 Obesity (BMI 30.0-34.9) 10/14/2022 Arthritis of right hip 10/14/2022 Arthritis of left knee 10/14/2022 Fibromyalgia 10/14/2022 Chronic low back pain 10/14/2022 Presbyopia 10/14/2022 Old tear of medial meniscus of right knee 10/14/2022 Primary osteoarthritis of right knee 10/14/2022 Primary osteoarthritis involving multiple joints 10/14/2022 History of left knee replacement 10/12/2023 Past Medical History: Diagnosis Date Arthritis 11/2020 Lyme arthritis of left knee (txed with doxycycline) Chronic back pain Chronic knee pain Diabetes mellitus (CMS/HCC) GERD (gastroesophageal reflux disease) chronic hoarseness (d/t GERD, polypoid growths vocal chord that resolved with surg Gout H/O syncope Hernia umbilical hernia Hyperkalemia 08/2020 HYPERKALEMIA WITH LISINOPRIL + MELOXICAM (d/giuliano) Kidney stones Neuropathy Psoriasis psoriasis with arthropathy Sciatica Past Surgical History: Procedure Laterality Date POLYPECTOMY 2019 vocal chords TOTAL KNEE ARTHROPLASTY Left UMBILICAL HERNIA REPAIR 2017 umbilical hernia s/p repair 08/2018 (Dr. Saab) Current Outpatient Medications on File Prior to Visit Medication Sig Dispense Refill acetaminophen (Tylenol) 500 MG tablet Take 2 tablets (1,000 mg) by mouth every 8 (eight) hours if needed for mild pain. 180 tablet 3 allopurinol (Zyloprim) 100 MG tablet TAKE 2 TABLETS BY MOUTH EVERY DAY 180 tablet 1 amLODIPine (Norvasc) 2.5 MG tablet TAKE 1 TABLET BY MOUTH EVERY DAY 90 tablet 3 atorvastatin (Lipitor) 40 MG tablet TAKE 1 TABLET BY MOUTH EVERY DAY 90 tablet 3 capsaicin (Zostrix) 0.025 % cream Apply topically 2 times daily. To affect joints. Wash hands well after applying. 50 g 1 cholecalciferol (Vitamin D-3) 10 MCG (400 UNIT) tablet TAKE 2 TABLETS (20 MCG) BY MOUTH ONCE PER DAY. 180 tablet 1 clotrimazole (Lotrimin) 1 % cream Apply topically 2 times daily. Use on toenails 30 g 2 cyclobenzaprine (Flexeril) 10 MG tablet Take 1 tablet (10 mg) by mouth if needed at bedtime for muscle spasms. 90 tablet 0 EPINEPHrine (Epipen) 0.3 MG/0.3ML injection syringe as directed Injection once for 1 day glucose blood (FREESTYLE LITE) test strip 1 each by Other route if needed (test blood glucose levels as needed). 100 each 3 Glucose Blood (GLUCOMETER ENCORE TEST ) one ketoconazole (NIZOral) 2 % cream Apply topically 2 times daily. 30 g 1 ketoconazole (NIZOral) 2 % shampoo SHAMPOO THREE TIMES A WEEK, LEAVE ON FOR 5-10 MINUTES, THEN RINSE. 120 mL 1 meloxicam (Mobic) 15 MG tablet Take 1 tablet (15 mg) by mouth Once per day. 30 tablet 11 metFORMIN (Glucophage) 500 MG tablet TAKE 1 TABLET BY MOUTH TWICE A DAY WITH FOOD 180 tablet 3 omeprazole (PriLOSEC) [address] capsule TAKE 1 CAPSULE BY MOUTH EVERY DAY 90 capsule 1 oxyCODONE (Roxicodone) 5 MG immediate release tablet Take 1 tablet (5 mg) by mouth every 6 (six) hours if needed for moderate pain for up to 28 days. 112 tablet 0 sennosides (Senokot) 8.6 MG tablet Take 1 tablet by mouth in the morning. tamsulosin (Flomax) 0.4 MG 24 hr capsule TAKE 1 CAPSULE (0.4 MG) BY MOUTH ONCE PER DAY. 90 capsule 3 buprenorphine (Butrans) 5 MCG/HR Place 1 patch on the skin 1 (one) time per week. 4 patch 0 No current facility-administered medications on file prior to visit. Allergies Allergen Reactions Bee Venom Unknown Penicillamine Other reaction(s): Unknown Prednisone Other reaction(s): Unknown Social History Tobacco Use Smoking status: Former Types: Cigarettes Substance Use Topics Alcohol use: Not Currently Drug use: Never Social History Social History Narrative Not on file Review of Symptoms: Review of Systems Respiratory: Negative for cough and shortness of breath. Cardiovascular: Negative for chest pain. Genitourinary: Positive for difficulty urinating. Negative for dysuria. Nocturia Musculoskeletal: Positive for arthralgias and back pain. Physical Exam: BP 132/83 (BP Location: Left arm, Patient Position: Sitting, BP Cuff Size: Adult) Pulse 79 Temp98.7 ??F (37.1 ??C) (Temporal) Ht 5' 7 (1.702 m) Wt 197 lb 6.4 oz (89.5 kg) SpO2 96% BMI 30.92 kg/m?? Results for orders placed or performed in visit on 01/01/25 POCT glycosylated hemoglobin (Hgb A1c) Collection Time: 01/01/25 9:13 AM Result Value Ref Range Hemoglobin A1C 6.8 (A) 4.0 - 6.0 % Physical Exam Constitutional: Appearance: Normal appearance. Cardiovascular: Rate and Rhythm: Normal rate and regular rhythm. Pulmonary: Effort: Pulmonary effort is normal. Breath sounds: Normal breath sounds. Genitourinary: Comments: External anus unremarkable. Internal exam with notably enlarged prostate, smooth, nontender Neurological: Mental Status: He is alert. ASSESSMENT AND PLAN 1. Type 2 diabetes mellitus without complication, without long-term current use of insulin ([facility]) (Primary) Improving. No change tx. Diet reviewed Labs as below - POCT glycosylated hemoglobin (Hgb A1c) - Albumin/Creatinine Ration, Timed Urine; Future - Albumin/Creatinine Ration, Timed Urine 2. Essential hypertension Controlled, check labs - Basic Metabolic Panel [id number]; Future - Basic Metabolic Panel 592012 3. Hyperlipidemia, unspecified hyperlipidemia type On statin, check labs - Lipid Panel, Standard 42817; Future - Lipid Panel, Standard 86016 4. Elevated PSA Prostate with enlargement. Continue meds. Check PSA. Consider addition of finasteride next visit, but will send to urology if PSA remains elevated. - PSA,Total [[id number]]; Future - PSA,Total [[id number]] 5. Nocturia As above 6. Cervicalgia Will f/u with [facility] 7. Primary osteoarthritis involving multiple joints Continue on oxycodone, refill cyclobenzaprine prn. - cyclobenzaprine (Flexeril) 10 MG tablet; Take 1 tablet (10 mg) by mouth if needed at bedtime for muscle spasms. Dispense: 90 tablet; Refill: 0 8. Vitamin D deficiency Check labs - Vitamin D 1,25 dihydroxy 492934; Future - Vitamin D 1,25 dihydroxy 665183 9. Idiopathic chronic gout 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 No sx, check labs - Uric acid; Future - Uric acid 10. Adenomatous polyp of colon, unspecified part of colon Reviewed. Repeat colonoscopy 5 yrs 11. Healthcare maintenance Neglected to give Prevnar today, will do so next visit. Review Shingrix next visit. Follow up in about 4 months (around 05/01/2025) for OV30 (prostate, pain). Lb Stevens, MSN, MSP, ANP [facility] [address] [facility], [place] [address] documented in this encounter Plan of Treatment Upcoming Encounters Date Type Department Care Team (Late st Contact Info) Description 04/30/2025 9:00 AM EDT Office Visit [facility] MED[facility] [address] [place] [address] Lb Stevens NP 70 [facility] [place] [facility] [place] [address] Scheduled Orders Name Type Priority Associated Diagnoses Orde r Schedule PSA,Total [[id number]] Lab Routine Elevated PSA Expected: 01/01/2025, Expires: 01/01/2026 Lipid Panel, Standard 65875 Lab Routine Hyperlipidemia, unspecified hyperlipidemia type Expected: 01/01/2025, Expires: 01/01/2026 Vitamin D 1,25 dihydroxy 535196 Lab Routine Vitamin D deficiency Expected: 01/01/2025, Expires: 01/01/2026 Uric acid Lab Routine Idiopathic chronic gout 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 Expected: 01/01/2025, Expires: 01/01/2026 Basic Metabolic Panel [id number] Lab Routine Essential hypertension Expected: 01/01/2025, Expires: 01/01/2026 Albumin/Creatinine Ration, Timed Urine Lab Routine Type 2 diabetes mellitus without complication, without long-term current use of insulin ([facility]) Expected: 01/01/2025 (Approximate), Expires: 01/01/2026 documented as of this encounter Procedures Procedure Name Priority Date/Time Associated Diagnosis Comments POCT GLYCOSYLATED HEMOGLOBIN (HGB A1C) Routine 01/01/2025 9:13 AM EST Type 2 diabetes mellitus without complication, without long-term current use of insulin ([facility]) documented in this encounter Results * (ABNORMAL) POCT glycosylated hemoglobin (Hgb A1c) (01/01/2025 9:13 AM EST) Hemoglobin A1C 6.8(A) 4.0 - 6.0 % Blood Capillary blood specimen / Unknown 01/01/2025 9:13 AM EST Lb Stevens NP POINT OF CARE TEST ENTER/ROMULO T ORDERABLES Final Result documented in this encounter Visit Diagnoses Diagnosis Type 2 diabetes mellitus without complication, without long-term current use of insulin ([facility])- Primary Essential hypertension Unspecified essential hypertension Hyperlipidemia, unspecified hyperlipidemia type Elevated PSA Elevated prostate specific antigen (PSA) Nocturia Cervicalgia Primary osteoarthritis involving multiple joints Vitamin D deficiency Idiopathic chronic gout 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 Adenomatous polyp of colon, unspecified part of colon Healthcare maintenance documented in this encounter Care Teams Sales And Marketing Agent Relationship Specialty Start Date End Date Lb Stevens NP [address] [place] [address] PCP - General Internal Medicine 10/28/22 documented as of this encounter
--- OUTSIDE RECORDS SUMMARY | 2025-01-17 10:12 | XMS_ITS | Encounter Summary ---
Author Organization [employer] Address 75 [facility] 7t [place] [address] Care Team Providers Care Livestock Exhibitor Name Role Phone Lb Stevens NP Primary Care Provider + [phone] Reason for Visit * Reason Onset Date Comments Med Refill 01/17/2025 Encounter Details Date Type Department Care Team (Late st Contact Info) Description 01/17/2025 Refill [facility] MEDICAL [address] [place] [address] Lb Stevens NP [address] [place], [place] [phone] Primary osteoarthritis involving multiple joints Social History Tobacco Use Types Packs/Day Years [...] * Telephone Encounter - MAYELIN Solomon - 01/17/2025 9:05 AM EST *Action Oxycdone 5mg* Masspat Last fill Date: 12/24/24 Masspat sold Date: 12/26/24 Last OV: 01/01/25 JL Next OV: 04/30/25 JL Last UTOX: DUE CSA Date: DUE DNF Date: 01/23/25 documented in this encounter Plan of Treatment Upcoming Encounters Date Type Department Care Team (Late st Contact Info) Description 04/30/2025 9:00 AM EDT Office Visit [facility] MEDICAL [address] [place] [address] Lb Stevens NP [address] [place] [address] documented as of this encounter Visit Diagnoses Diagnosis Primary osteoarthritis involving multiple joints documented in this encounter Care Teams Livestock Exhibitor Relationship Specialty Start Date End Date Lb Stevens NP [address] [place] [address] PCP - General Internal Medicine 10/28/22 documented as of this encounter
== END 2025-01-17 10:12 | disposition home or self-care (01) ==
PROVIDERS: PCP Nurse Practitioner Community Health; Referring Provider Nurse Practitioner Community Health; Visit Provider Registered Nurse Emergency
DX: M54.9 Dorsalgia, unspecified (principal); M79.7 Fibromyalgia; M47.816 Spondylosis without myelopathy or radiculopathy, lumbar region
CPT/HCPCS: 99204; G2211

== ENCOUNTER → 2025-01-17 10:35 | Outpatient (BNV) | payer MEDICARE, MEDICAID, SELFPAY | PROVIDERS: PCP Nurse Practitioner Community Health; Referring Provider Nurse Practitioner Community Health; Visit Provider Radiology Diagnostic Radiology | DX: M54.50 Low back pain, unspecified (principal) | CPT/HCPCS: 72110 ==

== ENCOUNTER 2025-04-17 12:41 | Outpatient (RCR) | payer MEDICARE, MEDICAID, SELFPAY ==
--- NOTE | 2025-03-19 10:45 | MHC.PT.EP ---
[facility] [place] Office [place] Office [place] Office [address] Elvis Maldonado [address] [phone] F: [phone] F: [phone] F: [phone] F: [phone] Physical Therapy Plan of Care Date of Evaluation: 03/19/25 Date of Surgery: N/A Diagnosis: back pain; bilateral low back pain (RL) Assessment: pt is a 65 y/o male presenting to physical therapy w/ referring diagnosis of back pain; bilateral back pain. His imaging is (+) for DISH and mild retrolisthesis of L5-S1. He presents w/ fibromyalgia and OA affecting multiple different body parts. Impairments include pain, decreased range of motion, decreased strength, impaired functional mobility, impaired postural awareness, and altered ambulation mechanics. pt is a fair candidate for skilled PT due to age, potential remediation of impairments, typical disease/condition progression and prognosis, comorbidities, and motivation. pt would benefit from skilled PT intervention to provide a tailored strengthening and stretching exercise program, functional training, gait training, postural re-training, neuromuscular re-education, modalities as needed for pain, equipment safety demonstration. Frequency and Duration: The patient will be seen 2x/wk for 4 wks Short Term Goals: pt will be I w/ HEP to promote self-management of condition. pt will demo proper sitting position w/ lumbar roll to promote neutral spine w/ seated ADLs. Freight Forwarder Goals: pt will improve B hip ABD strength to 5/5 to reduce R Trendelenburg w/ ambulation. pt will report a statistically significant improvement in self-reported outcome measure, Jessica, to promote return to PLOF. pt will improve B hip flexion AROM by at least 15* to promote ease in navigating stairs. Treatment Plan: Modalities to reduce pain, spasms and effusion. Manual therapy to restore motion and function. Therapeutic exercise to improve strength and flexibility. Neuromuscular re-education for posture and balance. Therapeutic activities to return to functional activities of daily living. Electronically signed by: Lissa Duggan PT, DPT Please sign and return to therapist. Thank you for your referral.
--- NOTE | 2025-05-16 15:05 | MHC.PT.DC ---
[facility] [place] [facility] [place] [facility] [place] Office [address] Elvis Maldonado 140 [facility] [phone] F: [phone] F: [phone] F: [phone] F: [phone] Physical Therapy Discharge Report Diagnosis: back pain; bilateral low back pain (RL) Date of Surgery: N/A Date of Evaluation: 03/19/25 Date of Discharge: 05/16/25 Treatments to Date: 9 Cancellations to Date: 1 No Shows to Date: 0 Discharge Status: Discharge Summary: The patient presented with significant restrictions in mobility of his lumbar spine, hips, and knees. He noticed improvement with passive stretching and soft tissue massage; however, was not compliant with his stretching program. He was not showing much improvement in his symptoms so he was discharged from this plan of care with strong encouragement to stretch on a daily basis. Electronically signed by: Lissa Duggan PT, DPT Please sign and return to therapist. Thank you for your referral.
== END 2025-05-16 15:05 | disposition home or self-care (01) ==
LOC: HO.PT 12:41
PROVIDERS: PCP Nurse Practitioner Community Health; Visit Provider Registered Nurse Emergency
DX: M54.9 Dorsalgia, unspecified (principal)
CPT/HCPCS: 97110; 97140; 97162